=== PATIENT | female | born 1950 | race Caucasian/White ===

== ENCOUNTER → 2024-01-25 10:58 | Outpatient (REF) | payer MEDICARE, OTHER, SELFPAY | LOC: HWRAD 10:58 | PROVIDERS: ATTENDING PHYSICIAN Internal Medicine Hematology & Oncology; FAMILY PHYSICIAN Internal Medicine | DX: N28.1 Cyst of kidney, acquired (principal) | CPT/HCPCS: 76775 ==

== ENCOUNTER → 2024-02-04 13:18 | Outpatient (REF) | payer MEDICARE, OTHER, SELFPAY | LOC: HWRAD 13:18 | PROVIDERS: ATTENDING PHYSICIAN Nurse Practitioner Family | DX: M89.319 Hypertrophy of bone, unspecified shoulder (principal) | CPT/HCPCS: 73000 ==

== ENCOUNTER 2024-06-15 19:42 | Emergency (ER) | payer MEDICARE, OTHER, SELFPAY ==
[2024-06-15 19:49] VITALS: BP 167/89
[2024-06-15 20:15] VITALS: BP 141/82
--- NOTE | 2024-06-15 20:19 | ED.GENMED ---
History of Present Illness
<Abby Cameron PA-C - Last Filed: 06/16/24 00:23>
General
Chief Complaint: Chest Pain
Source: patient
Exam Limitations: none
Time Seen by Provider: 06/15/24 20:06
Nursing documentation reviewed up to this point in time: agreed with
History of Present Illness
History of Present Illness:
Patient is a 74-year-old female with history hypertension, hyperlipidemia presenting to the emergency department due to acute onset chest discomfort around 7:15 PM. Patient states she had recently finished eating dinner approximately 30 minutes
prior when she was sitting down at the table and had acute onset mid chest discomfort. Patient describes it as a pressure type pain in her mid chest extending up her anterior chest into her neck. No radiation into her back. Patient states at
first she thought it may be related to acid reflux although symptoms were much more severe than she is ever experienced in the past and came to the emergency department for further evaluation. She did have some mild nausea but no vomiting. Patient
denies any associated shortness of breath, dizziness, lightheadedness, tearing back pain, numbness/tingling.
Patient states since arriving to the emergency department symptoms have decreased slightly now states they are to 5 out of 10 in severity.
Patient denies any personal history of cardiovascular disease. She does follow with Dr. Madison for known PFO and has history had a stress test in the past with no abnormal findings.
Past History
<Abby Cameron PA-C - Last Filed: 06/16/24 00:23>
Past History
ED Past Medical History: HTN and Other (Patent foramen ovale)
ED Past Surgical History: Orthopedic
Social History
Tobacco: Non-smoker
Alcohol: None
Drug: None
Personal:
Living: with family
Review of Systems
<Abby Cameron PA-C - Last Filed: 06/16/24 00:23>
Review of Systems
Allergies reviewed?: Yes
All Other Systems: ROS reviewed and negative except as documented in HPI and ROS
Phy Exam
<Abby Cameron PA-C - Last Filed: 06/16/24 00:23>
Physical Exam
Physical Exam:
Vitals: Mildly hypertensive, otherwise vital signs stable. Afebrile
General: Patient is well appearing, no acute distress. Nontoxic-appearing
Skin: Warm and dry, no rashes or lesions
Head: Normocephalic, atraumatic
Eyes: Sclera nonicteric. EOMs intact. No nystagmus.
Throat: Protecting airway
Neck: Normal ROM, no cervical spine tenderness, no meningismus. No JVD
Cardiac: Regular rate and rhythm, no murmurs. Anterior chest wall nontender to palpation
Pulm: Normal respiratory effort, no wheezes, rales, rhonchi heard on exam.
Abdomen: Abdomen soft. No abdominal tenderness.
Extremities: No evidence of cyanosis or edema. Great distal pulses
Neuro: AAOx3. CN II-XII intact. No focal neurologic deficits.
Psychiatric: Normal affect.
Scores
<Abby Cameron PA-C - Last Filed: 06/16/24 00:23>
Heart Score for Chest Pain Patients
STEMI patient?: No
History: Moderately Suspicious
ECG: Nonspecific Repolarization
Age: >/= 65 years
Risk Factors: 1 or 2 Risk Factors
Troponin: </= Normal Limit
Heart Score for Chest Pain Patients: 5
Heart Score Risk: 20.3% MACE over next 6 weeks
Course
<Abby Cameron PA-C - Last Filed: 06/16/24 00:23>
Orders/Labs/Results
Orders:
Orders
06/15/24 19:43
EKG [Electrocardiogram (*1)] Urgent
Reason for Study: Chest Pain
EKG- Treatment ONCE
06/15/24 20:22
CR Chest - 2 Views Urgent
Comment:
Reason For Exam: chest pain
06/15/24 20:35
Pantoprazole [Protonix IV] 40 mg IV NOW STA
06/15/24 20:36
Pantoprazole [Protonix IV] 40 mg .ROUTE .STK-MED ONE
06/15/24 20:41
Complete Blood Count/With Diff Urgent
Comprehensive Metabolic Panel Urgent
Troponin I Urgent
06/15/24 23:00
Electrocardiogram (*1) Urgent
Reason for Study: Chest Pain
EKG- Treatment ONCE
06/15/24 23:11
Troponin I Urgent
Abnormal Lab Results
06/15/24
20:41
Eosinophils % 7.0 H %
(0-6)
Glucose 125 H mg/dl
(70-99)
Total Protein 5.9 L g/dl
(6.3-8.2)
06/15/24 20:41
06/15/24 20:41
Vital Signs
Initial and Last Documented VS:
Initial Vital Signs
Temp Pulse Resp BP
98.3 F 75 20 167/89
06/15/24 19:49 06/15/24 19:49 06/15/24 19:49 06/15/24 19:49
Last Documented Vital Signs
Temp Pulse Resp BP Pulse Ox
98.3 F 71 17 133/70 99
06/15/24 19:49 06/16/24 00:00 06/16/24 00:00 06/16/24 00:05 06/16/24 00:05
<Harlan Bey, DO - Last Filed: 06/15/24 21:47>
Orders/Labs/Results
Orders:
Orders
06/15/24 19:43
EKG [Electrocardiogram (*1)] Urgent
Reason for Study: Chest Pain
EKG- Treatment ONCE
06/15/24 20:22
CR Chest - 2 Views Urgent
Comment:
Reason For Exam: chest pain
06/15/24 20:35
Pantoprazole [Protonix IV] 40 mg IV NOW STA
06/15/24 20:36
Pantoprazole [Protonix IV] 40 mg .ROUTE .STK-MED ONE
06/15/24 20:41
Complete Blood Count/With Diff Urgent
Comprehensive Metabolic Panel Urgent
Troponin I Urgent
06/15/24 23:00
Electrocardiogram (*1) Urgent
Reason for Study: Chest Pain
EKG- Treatment ONCE
06/15/24 23:11
Troponin I Urgent
Abnormal Lab Results
06/15/24
20:41
Eosinophils % 7.0 H %
(0-6)
Glucose 125 H mg/dl
(70-99)
Total Protein 5.9 L g/dl
(6.3-8.2)
06/15/24 20:41
06/15/24 20:41
Vital Signs
Initial and Last Documented VS:
Initial Vital Signs
Temp Pulse Resp BP
98.3 F 75 20 167/89
06/15/24 19:49 06/15/24 19:49 06/15/24 19:49 06/15/24 19:49
Last Documented Vital Signs
Temp Pulse Resp BP Pulse Ox
98.3 F 71 17 133/70 99
06/15/24 19:49 06/16/24 00:00 06/16/24 00:00 06/16/24 00:05 06/16/24 00:05
<Abby Cmaeron PA-C - Last Filed: 06/16/24 00:23>
MDM/Problems Addressed
Differential Diagnosis Includes:
Not limited to: GERD, muscle strain, pericarditis, myocarditis, ACS
MDM/Problems Addressed:
74-year-old female with history as documented presenting for evaluation of acute onset chest discomfort approximately 30 minutes following dinner tonight. No true exertional or pleuritic component. Patient was sitting down at time of onset.
Symptoms have dissipated somewhat by arrival to emergency department. No associated shortness of breath, dizziness, lightheadedness, diaphoresis. No personal history of cardiovascular disease. Patient somewhat hypertensive on arrival with
normalization of blood pressure by my examination. Physical exam as above. Patient is very well-appearing, in no apparent distress. Heart regular rate and rhythm. Lungs clear bilaterally. Anterior chest wall nontender to palpation. Abdomen is
soft and nontender. No focal neurologic deficits noted. An EKG obtained in triage shows no acute ischemic changes. Labs were initiated which show no acute abnormalities. Initial troponin is normal. Given recent onset of symptoms�will repeat
troponin at 11 PM which would be approximately 4 hours from onset of symptoms. A chest x-ray was also performed which shows no acute abnormality of the chest. Did give patient 40 mg IV Protonix which patient states did improve her symptoms. Will
plan for repeat troponin at 11 PM, monitor patient closely. Will reassess.
Into reassess patient at bedside. Patient definitely feeling better following Protonix. She looks well, is in no apparent distress. Repeat troponin is pending.
A repeat EKG was obtained which shows no acute ischemic changes. Repeat troponin was also normal. Given it has been 4 hours since onset of symptoms�feel this is sufficient to rule out acute CT patient is feeling better. Given 2 negative
troponins, nonischemic EKGs, and improvement following after an acid�doubt ACS/acute cardiac syndrome at this time. Although given patient's risk factors�do feel she should be closely monitored with cardiology for possible stress testing
outpatient. No indication for admission at this time. Patient will also follow-up with GI doctor given possibility of acid reflux component. Return precautions discussed at length. Patient will be plugged in with chest pain hotline and will
follow-up with her financial assistance advisor this week. Stable for discharge. Patient seen with attending physician.
Chronic conditions affecting care:
Hypertension, hyperlipidemia, GERD
Acute Exacerbation and/or Progression of Chronic Illness:
Acutely hypertensive
<Abby Cameron PA-C - Last Filed: 06/16/24 00:23>
*Radiology
Radiology exam reviewed: preliminary read by ED provider (No acute cardiopulmonary process) and radiology read reviewed
*Pulse Oximetry
Patient hypoxic: no
*EKG
Interpreted by ED Provider?: Yes
EKG Intrepretation Date: 06/15/24
Interpretation: normal
Comparison EKG: no changes
Heart Rate: 80
Rate: normal
Rhythm: sinus
[place]: normal axis
Interval: normal interval
QRS Pattern: right bundle branch block
Ischemia: no ischemia
*Machine Repairer Maintenance Interpretation
Rate: normal
Interpretation: normal
Heart Rate: 74
Rhythm: sinus
*Critical Care Note
Total Time (30-74mins, 75-104mins- exclusive of procedures): Not Applicable
ED Attending Note
<Abby Cameron PA-C - Last Filed: 06/16/24 00:23>
-
Portions of this chart may have been created with voice recognition software.� Occasional wrong word or��sound alike� substitutions may have occurred due to the inherent limitations of voice recognition software.
<Harlan Bey DO - Last Filed: 06/15/24 21:47>
ED Attending Note
Patient seen and examined by attending physician: Yes
I performed the substantive portion of visit, reviewed & personally made and approve the management plan that is documented in note by myself or EWELINA.: Yes
ED Attending Note:
With PA agree with assessment and plan dyspepsia worse than her prior reflux no history of CAD, EKG noted feeling better after an acids, first troponin noted, will repeat if negative will discharge home to follow-up with cardiology
Discharge Plan
Departure
Patient Disposition: Home (Routine Discharge)
Date of Disposition: 06/15/24
Time of Disposition: 23:55
Patient with high blood pressure during this ER visit?: Yes
Condition: Good
Covid-19: Not Applicable
Discharge Problem:
Chest pain
Instructions: Acid reflux and GERD in adults, Chest Pain CBC Follow Up, Chest Pain
Prescriptions:
No Action
sumatriptan succinate 50 MG tablet
50 mg PO DAILYPRN PRN (Reason: migraines)
lisinopril 5 MG tablet
5 mg PO DAILY
ascorbic acid (vitamin C) [Vitamin C] 500 MG tablet
500 mg PO TUSA
rosuvastatin 10 MG tablet
10 mg PO HS
cholecalciferol (vitamin D3) 1,000 UNITS tablet
1,000 units PO DAILY
One Daily Women 50 Plus 1 EACH tablet
1 ea PO QPM
calcium-vitamin D3-vitamin K [Citracal-D3 Soft Chew] 1 EACH tablet,chewable
1 ea PO MO
fexofenadine 60 mg Tablet
60 mg PO DAILYPRN PRN (Reason: allergies)
naproxen sodium [Aleve] 220 mg Tablet
220 mg PO Q12H
aspirin 81 MG tablet,chewable
81 mg PO QPM
loperamide [Imodium] 2 mg Capsule
2 mg PO DAILYPRN PRN (Reason: diarrhea)
polyethylene glycol 3350 [Miralax] 17 gram Powder In Packet
17 g PO QPM
meclizine 25 mg Tablet
25 mg PO DAILYPRN PRN (Reason: vertigo)
triamcinolone acetonide [Nasacort] 55 mcg Aerosol,[place]
1 spray INTRANASAL DAILY
Rx Instructions:
administer into each nostril
calcium carbonate [Tums] 200 mg calcium (500 mg) Tablet,Chewable
200 mg PO DAILYPRN PRN (Reason: sour stomach)
verapamil 100 mg Capsule, [address]
100 mg PO HS
dicyclomine 10 mg Capsule
10 mg PO DAILYPRN PRN (Reason: intestinal spasm)
Systane (PF) 0.4-0.3 % [place]
1 drp BOTH EYES TID
Biotene Dry Mouth Oral Rinse Mouthwash
15 ml MUCOUS MEMBRANE DAILYPRN PRN (Reason: dry mouth)
ciprofloxacin HCl [Cipro] 500 mg tablet
500 mg PO BID Qty: 14 0RF
metronidazole 500 mg tablet
500 mg PO TID Qty: 21 0RF
Referrals:
Donnie Madison MD [Active] - Next open appointment
Radu Marinelli DO [Family Provider] -
Activity Restrictions/Additional Instructions:
RETURN TO THE EMERGENCY DEPARTMENT WITH ANY RECURRENT CHEST PAIN, CHEST PAIN WORSE WITH EXERTION OR ASSOCIATED WITH SHORTNESS OF BREATH, DIZZINESS/LIGHTHEADEDNESS, NAUSEA, ANY WORSENING IN CURRENT SYMPTOMS, OR ANY OTHER CONCERNS
-Stay well-hydrated.
-As discussed�it is very important that you are seen by your financial assistance advisor for further evaluation/management. They may want to do further testing including stress test. Take it easy until you are cleared by cardiology.
Monitor your symptoms closely and return to the emergency department with acute worsening/new symptoms.
Interventions
Interventions:
*Risk Screen - Suicide Last Done: 06/15/24 19:49
*General Assessment Last Done: 06/15/24 19:49
*Neglect/Abuse Screening Last Done: 06/15/24 19:49
ED- Fall Risk Assessment Last Done: 06/15/24 20:49
*Nursing Disposition Last Done: 06/16/24 00:05
ED- Cardiac Assessment Last Done: 06/15/24 20:49
Discharge Date and Time
Discharge Date/Time: 06/16/24 00:09
Print Language: SAMI
[2024-06-15] MEDS: PROTONIX IV 40 MG IV (20:40)
[2024-06-15 20:42] VITALS: BMI 29.8
[2024-06-15 20:47] LABS: % Immature Granulocytes 0.2 % (0-0.5); % Lymphocytes 34.2 % (20.5-51.1); % Monocytes 7.5 % (1.7-9.3); % Neutrophils 50.1 % (42.2-75.2); Absolute Basophils 0.1 10^3/uL (0-0.2); Absolute Eosinophils 0.6 10^3/uL (0-0.7); Absolute Lymphocytes 2.8 10^3/uL (1.2-3.4); Absolute Monocytes 0.6 10^3/uL (0.1-0.6); Absolute Neutrophils 4.2 10^3/uL (1.4-6.5); Hematocrit 37.3 % (37.0-47.0); Mean Corp Hgb Conc. 34.9 g/dL (33.0-37.0); Mean Corpuscular Hgb 29.5 pg (27.0-31.0); Mean Corpuscular Volume 84.6 fL (81.0-99.0); Mean Platelet Volume 9.6 fL (7.4-10.4); Nucleated Red Blood Cells % 0 %; Platelet Count 302 10^3/uL (130-400); Red Blood Cell Count 4.41 10^6/uL (4.20-5.40); Red Cell Dist. Width 13.2 % (11.5-14.5); White Blood Cell Count 8.3 10^3/uL (4.8-10.8)
[2024-06-15 21:16] LABS: ALT (SGPT) 15 U/L (0-35); AST (SGOT) 30 U/L (14-36); Albumin 3.9 g/dl (3.5-5.0); Alkaline Phosphatase 80 U/L (38-126); Blood Urea Nitrogen 13 mg/dl (7-17); Calcium 9.8 mg/dl (8.4-10.2); Carbon Dioxide 27 mmol/L (22-30); Chloride 103 mmol/L (98-107); Estimated Creatinine Clearance 47 ml/min; Glucose 125 mg/dl (70-99); Potassium 3.8 mmol/L (3.5-5.1); Sodium 135 mmol/L (135-145); Total Bilirubin 0.5 mg/dl (0.2-1.3); Total Protein 5.9 g/dl (6.3-8.2); eGFR > 60.00
[2024-06-15 21:21] LABS: Troponin I < 0.012 ng/ml
[2024-06-15 22:00] VITALS: BP 146/82
[2024-06-15 23:00] VITALS: BP 146/80
[2024-06-15 23:46] LABS: Troponin I < 0.012 ng/ml
[2024-06-16 00:05] VITALS: BP 133/70
== END 2024-06-16 00:09 | disposition home or self-care (01) ==
LOC: EMR 19:42
PROVIDERS: Physician Assistant; EMERGENCY PHYSICIAN Emergency Medicine; FAMILY PHYSICIAN Internal Medicine
DX: R07.89 Other chest pain (principal); I10 Essential (primary) hypertension; E78.5 Hyperlipidemia, unspecified
CPT/HCPCS: 99285; 96374; 71046; 80053; 84484; 85025; 93005

== ENCOUNTER 2024-08-12 16:50 | Emergency (ER) | payer MEDICARE, OTHER, SELFPAY ==
[2024-08-12 17:01] VITALS: BP 167/92
[2024-08-12 19:56] LABS: Blood Urea Nitrogen 12 mg/dl (7-17); Calcium 9.8 mg/dl (8.4-10.2); Carbon Dioxide 27 mmol/L (22-30); Chloride 98 mmol/L (98-107); Glucose 121 mg/dl (70-99); Potassium 4.7 mmol/L (3.5-5.1); Sodium 139 mmol/L (135-145); eGFR > 60.00
[2024-08-12] MEDS: ELIQUIS 10 MG PO (20:11)
--- NOTE | 2024-08-12 20:20 | ED.GENMED ---
History of Present Illness
General
Chief Complaint: DVT/Possible Blood Clot
Source: patient
Exam Limitations: none
Time Seen by Provider: 08/12/24 18:57
Nursing documentation reviewed up to this point in time: agreed with
History of Present Illness
History of Present Illness:
Patient to ED with comlaint of pain and swelling to LLE. States symptoms started last week. She was seen by her parent coach and placed on a prednisone taper, patient states to decrease inflarmmation, treat possible plantar fasciitis. Patient
states her foot pain has improved but her calf pain continues. She was sent for outpatient US today which revealed DVT in the peroneal vein. Advised to come to ED for eval. She denies any CP/pressure,SOB. No prior history of same.
Past History
Past History
ED Past Medical History: HTN and Other (Patent foramen ovale)
ED Past Surgical History: Orthopedic
Social History
Tobacco: Non-smoker
Alcohol: None
Drug: None
Personal:
Living: with family
Review of Systems
Review of Systems
Allergies reviewed?: Yes
Constitutional: Reports no symptoms
EENT: Reports no symptoms
Respiratory: Reports no symptoms
Cardiac: Reports no symptoms
ABD/GI: Reports no symptoms
Musculoskeletal: Reports joint pain (pain to left calf)
Skin: Reports no symptoms
Neurological: Reports no symptoms
Psychiatric: Reports no symptoms
Phy Exam
General Physical Exam
General Presentation: well appearing and no apparent distress
General age: appears stated age
General Skin: warm and dry
General Habitus: normal
General Mental: alert
Cardiovascular Exam
Cardiovascular Exam: regular rate/rhythm and no edema
Pulmonary Exam
Pulmonary Exam: lungs clear and no respiratory distress
Musculoskeletal Exam
Musculoskeletal Exam: neuro vasc intact and other (left calf pain)
Skin Exam
Skin Exam: normal color, warm/dry and no rash
Psychiatric Exam
Psychiatric Exam: normal mood/affect
Course
Orders/Labs/Results
Orders:
Orders
08/12/24 19:15
Basic Metabolic Panel Urgent
08/12/24 20:03
Apixaban [Eliquis] 10 mg PO NOW STA
Abnormal Lab Results
08/12/24
19:15
Creatinine 0.5 L mg/dL
(0.6-1.0)
Glucose 121 H mg/dl
(70-99)
08/12/24 19:15
Vital Signs
Initial and Last Documented VS:
Initial Vital Signs
Temp Pulse Resp BP Pulse Ox
98.2 F 75 20 167/92 95
08/12/24 17:01 08/12/24 17:01 08/12/24 17:01 08/12/24 17:01 08/12/24 17:01
Last Documented Vital Signs
Temp Pulse Resp BP Pulse Ox
98.2 F 75 20 167/92 95
08/12/24 17:01 08/12/24 17:01 08/12/24 17:01 08/12/24 17:01 08/12/24 17:01
*Radiology
Radiology exam reviewed: radiology read reviewed
*Pulse Oximetry
Patient hypoxic: yes
*Critical Care Note
Total Time (30-74mins, 75-104mins- exclusive of procedures): Not Applicable
Update Note
Update Note:
Patient to ED for eval of left calf pain. US report of DVT peroneal vein. No identifiable risk factors. [place] started in department. She is discharged home and will follow up with PCP in AM Given instructions on s/s to return to ED and she is
agreeable to plan.
ED Attending Note
-
Portions of this chart may have been created with voice recognition software.� Occasional wrong word or��sound alike� substitutions may have occurred due to the inherent limitations of voice recognition software.
Discharge Plan
Departure
Patient Disposition: Home (Routine Discharge)
Date of Disposition: 08/12/24
Time of Disposition: 20:05
Patient with high blood pressure during this ER visit?: No
Condition: Good
Covid-19: Not Applicable
Discharge Problem:
DVT (deep venous thrombosis)
Instructions: Deep Vein Thrombosis (Blood Clots in the Legs) (DC), Apixaban
Prescriptions:
New
Eliquis DVT-PE Treat 30D Start 5 mg (74 tabs) tablets,dose pack
See Rx Instructions .ROUTE .COMPLEX Qty: 74 0RF
Rx Instructions:
orally per package directions
No Action
sumatriptan succinate 50 MG tablet
50 mg PO DAILYPRN PRN (Reason: migraines)
lisinopril 5 MG tablet
5 mg PO DAILY
ascorbic acid (vitamin C) [Vitamin C] 500 MG tablet
500 mg PO TUSA
rosuvastatin 10 MG tablet
10 mg PO HS
cholecalciferol (vitamin D3) 1,000 UNITS tablet
1,000 units PO DAILY
One Daily Women 50 Plus 1 EACH tablet
1 ea PO QPM
calcium-vitamin D3-vitamin K [Citracal-D3 Soft Chew] 1 EACH tablet,chewable
1 ea PO MO
fexofenadine 60 mg Tablet
60 mg PO DAILYPRN PRN (Reason: allergies)
naproxen sodium [Aleve] 220 mg Tablet
220 mg PO Q12H
aspirin 81 MG tablet,chewable
81 mg PO QPM
loperamide [Imodium] 2 mg Capsule
2 mg PO DAILYPRN PRN (Reason: diarrhea)
polyethylene glycol 3350 [Miralax] 17 gram Powder In Packet
17 g PO QPM
meclizine 25 mg Tablet
25 mg PO DAILYPRN PRN (Reason: vertigo)
triamcinolone acetonide [Nasacort] 55 mcg Aerosol,[place]
1 spray INTRANASAL DAILY
Rx Instructions:
administer into each nostril
calcium carbonate [Tums] 200 mg calcium (500 mg) Tablet,Chewable
200 mg PO DAILYPRN PRN (Reason: sour stomach)
verapamil 100 mg Capsule, [address]
100 mg PO HS
dicyclomine 10 mg Capsule
10 mg PO DAILYPRN PRN (Reason: intestinal spasm)
Systane (PF) 0.4-0.3 % Droppe[place]
1 drp BOTH EYES TID
Biotene Dry Mouth Oral Rinse Mouthwash
15 ml MUCOUS MEMBRANE DAILYPRN PRN (Reason: dry mouth)
ciprofloxacin HCl [Cipro] 500 mg tablet
500 mg PO BID Qty: 14 0RF
metronidazole 500 mg tablet
500 mg PO TID Qty: 21 0RF
Referrals:
Radu Marinelli DO [Family Provider] - Tomorrow
Interventions
Interventions:
*Risk Screen - Suicide Last Done: 08/12/24 17:01
*General Assessment Last Done: 08/12/24 17:01
*Neglect/Abuse Screening Last Done: 08/12/24 20:17
ED- Fall Risk Assessment Last Done: 08/12/24 20:17
*ED COVID-19 Vaccine History Last Done: 08/12/24 20:17
*Nursing Disposition Last Done: 08/12/24 20:17
ED- Cardiac Assessment Last Done: 08/12/24 19:52
ED- Pulmonary Assessment Last Done: 08/12/24 19:52
ED-Peripheral Vascular Assessment Last Done: 08/12/24 19:52
ED-Skin Assessment Last Done: 08/12/24 19:52
Discharge Date and Time
Discharge Date/Time: 08/12/24 20:18
Print Language: LITHUANIAN
== END 2024-08-12 20:18 | disposition home or self-care (01) ==
LOC: EMR 16:50
PROVIDERS: Nurse Practitioner; EMERGENCY PHYSICIAN Emergency Medicine; FAMILY PHYSICIAN Internal Medicine
DX: I82.452 Acute embolism and thrombosis of left peroneal vein (principal); I10 Essential (primary) hypertension
CPT/HCPCS: 99284; 80048; 93971

== ENCOUNTER 2024-09-15 15:59 | Emergency (ER) | payer MEDICARE, OTHER, SELFPAY ==
[2024-09-15 16:00] VITALS: BP 196/101
[2024-09-15 16:37] LABS: % Basophils 1.1 % (0-2); % Eosinophils 4.7 % (0-6); % Immature Granulocytes 0.4 % (0-0.5); % Lymphocytes 16.9 % (20.5-51.1); % Monocytes 6.7 % (1.7-9.3); % Neutrophils 70.2 % (42.2-75.2); Absolute Basophils 0.1 10^3/uL (0-0.2); Absolute Eosinophils 0.5 10^3/uL (0-0.7); Absolute Lymphocytes 1.7 10^3/uL (1.2-3.4); Absolute Monocytes 0.7 10^3/uL (0.1-0.6); Absolute Neutrophils 7.2 10^3/uL (1.4-6.5); Hematocrit 38.2 % (37.0-47.0); Hemoglobin 12.7 g/dL (12.0-16.0); Mean Corp Hgb Conc. 33.2 g/dL (33.0-37.0); Mean Corpuscular Hgb 28.7 pg (27.0-31.0); Mean Corpuscular Volume 86.2 fL (81.0-99.0); Mean Platelet Volume 11.1 fL (7.4-10.4); Nucleated Red Blood Cells % 0 %; Platelet Count 112 10^3/uL (130-400); Red Blood Cell Count 4.43 10^6/uL (4.20-5.40); Red Cell Dist. Width 13.2 % (11.5-14.5); White Blood Cell Count 10.2 10^3/uL (4.8-10.8)
[2024-09-15 16:38] LABS: ALT (SGPT) 59 U/L (0-35); AST (SGOT) 111 U/L (14-36); Albumin 4.3 g/dl (3.5-5.0); Alkaline Phosphatase 689 U/L (38-126); Blood Urea Nitrogen 5 mg/dl (7-17); Calcium 9.6 mg/dl (8.4-10.2); Carbon Dioxide 29 mmol/L (22-30); Chloride 101 mmol/L (98-107); Glucose 145 mg/dl (70-99); Potassium 4.1 mmol/L (3.5-5.1); Sodium 137 mmol/L (135-145); Total Bilirubin 0.7 mg/dl (0.2-1.3); Total Protein 6.8 g/dl (6.3-8.2); eGFR > 60.00
--- NOTE | 2024-09-15 17:05 | ED.GENMED ---
History of Present Illness
General
Chief Complaint: Headache
Time Seen by Provider: 09/15/24 16:43
History of Present Illness
History of Present Illness:
Patient is a 74-year-old woman with recently diagnosed DVT on Eliquis, migraines presented to the emergency department with migraine. Patient states that when she was on Imitrex for her migraines however when she started the Eliquis she had to stop
taking the Imitrex. She did go to her neurologist who started her on a different medication for treatment however there is a delay secondary to insurance. She states that she developed this migraine at 2 AM. It is like her usual migraines. It is
on the right side of her head with associated nausea vomiting photophobia and phonophobia. No fevers or chills. No neck stiffness. No numbness tingling. No weakness. She did have a headache a few days ago that she tried Tylenol 3 cups of
caffeine and it did work however given that she has had a second migraine within the past week she came in here for further evaluation.
Past History
Past History
ED Past Medical History: HTN and Other (Patent foramen ovale)
ED Past Surgical History: Orthopedic
Social History
Tobacco: Non-smoker
Alcohol: None
Drug: None
Personal:
Living: with family
Phy Exam
Physical Exam
Physical Exam:
GENERAL: in no acute distress
HEENT: normocephalic, extraocular movements intact, moist oral mucosa
NECK: normal inspection
RESPIRATORY: no respiratory distress, clear to auscultation bilaterally
CARDIOVASCULAR: regular rate and rhythm
ABDOMEN/: soft, non-distended, non-tender to palpation, no rebound or guarding
EXTREMITIES: non-tender, no edema/swelling
NEUROLOGIC: alert and oriented x 3, cranial nerves II-XII intact, right upper extremity strength 5/5, left upper extremity strength 5/5, right lower extremity strength 5/5, left lower extremity strength 5/5, normal sensation to light touch, normal
agnjip-[id number] and niph-dx-iile, gait not tested formally
SKIN: warm
Course
Orders/Labs/Results
Orders:
Orders
09/15/24 16:10
Complete Blood Count/With Diff Urgent
Comprehensive Metabolic Panel Urgent
09/15/24 17:03
Acetaminophen [Tylenol] 1,000 mg PO NOW STA
Diphenhydramine [Benadryl] 25 mg IV NOW STA
Metoclopramide [Reglan] 10 mg IV NOW STA
Abnormal Lab Results
09/15/24
16:10
Plt Count 112 L 10^3/uL
(130-400)
MPV 11.1 H fL
(7.4-10.4)
Absolute Neuts (auto) 7.2 H 10^3/uL
(1.4-6.5)
Absolute Monos (auto) 0.7 H 10^3/uL
(0.1-0.6)
Lymphocytes % 16.9 L %
(20.5-51.1)
BUN 5 L mg/dl
(7-17)
Creatinine 0.5 L mg/dL
(0.6-1.0)
Glucose 145 H mg/dl
(70-99)
AST 111 H U/L
(14-36)
ALT 59 H U/L
(0-35)
Alkaline Phosphatase 689 H U/L
(38-126)
09/15/24 16:10
09/15/24 16:10
Vital Signs
Initial and Last Documented VS:
Initial Vital Signs
Temp Pulse Resp BP Pulse Ox
98.0 F 78 18 196/101 98
09/15/24 16:00 09/15/24 16:00 09/15/24 16:00 09/15/24 16:00 09/15/24 16:00
Last Documented Vital Signs
Temp Pulse Resp BP Pulse Ox
98.0 F 70 18 178/84 97
09/15/24 16:00 09/15/24 18:10 09/15/24 18:10 09/15/24 18:10 09/15/24 18:10
MDM/Problems Addressed
Differential Diagnosis Includes:
Patient is a 74-year-old woman with history of migraines recently who had to discontinue her Imitrex presenting to the emergency department with a migraine that is consistent with her prior migraines. Vitals are unremarkable and exam does not show
any neuro deficits. Likely migraine. No headache red flags. History and exam without any managements or focal neurofindings to suggest acute hemorrhage or meningitis or abscess. Will give migraine cocktail and reassess.
*Critical Care Note
Total Time (30-74mins, 75-104mins- exclusive of procedures): Not Applicable
Update Note
Update Note:
On reevaluations patient's headache has improved. Will discharge at this time. Strict return precautions given.
ED Attending Note
-
Portions of this chart may have been created with voice recognition software.� Occasional wrong word or��sound alike� substitutions may have occurred due to the inherent limitations of voice recognition software.
Discharge Plan
Departure
Patient Disposition: Home (Routine Discharge)
Date of Disposition: 09/15/24
Time of Disposition: 18:57
Patient with high blood pressure during this ER visit?: Yes
Discharge Problem:
Headache
Instructions: Migraines (DC)
Prescriptions:
No Action
sumatriptan succinate 50 MG tablet
50 mg PO DAILYPRN PRN (Reason: migraines)
lisinopril 5 MG tablet
5 mg PO DAILY
ascorbic acid (vitamin C) [Vitamin C] 500 MG tablet
500 mg PO TUSA
rosuvastatin 10 MG tablet
10 mg PO HS
cholecalciferol (vitamin D3) 1,000 UNITS tablet
1,000 units PO DAILY
One Daily Women 50 Plus 1 EACH tablet
1 ea PO QPM
calcium-vitamin D3-vitamin K [Citracal-D3 Soft Chew] 1 EACH tablet,chewable
1 ea PO MO
fexofenadine 60 mg Tablet
60 mg PO DAILYPRN PRN (Reason: allergies)
naproxen sodium [Aleve] 220 mg Tablet
220 mg PO Q12H
aspirin 81 MG tablet,chewable
81 mg PO QPM
loperamide [Imodium] 2 mg Capsule
2 mg PO DAILYPRN PRN (Reason: diarrhea)
polyethylene glycol 3350 [Miralax] 17 gram Powder In Packet
17 g PO QPM
meclizine 25 mg Tablet
25 mg PO DAILYPRN PRN (Reason: vertigo)
triamcinolone acetonide [Nasacort] 55 mcg Aerosol,[place]
1 spray INTRANASAL DAILY
Rx Instructions:
administer into each nostril
calcium carbonate [Tums] 200 mg calcium (500 mg) Tablet,Chewable
200 mg PO DAILYPRN PRN (Reason: sour stomach)
verapamil 100 mg Capsule, [address]
100 mg PO HS
dicyclomine 10 mg Capsule
10 mg PO DAILYPRN PRN (Reason: intestinal spasm)
Systane (PF) 0.4-0.3 % Dropperette
1 drp BOTH EYES TID
Biotene Dry Mouth Oral Rinse Mouthwash
15 ml MUCOUS MEMBRANE DAILYPRN PRN (Reason: dry mouth)
ciprofloxacin HCl [Cipro] 500 mg tablet
500 mg PO BID Qty: 14 0RF
metronidazole 500 mg tablet
500 mg PO TID Qty: 21 0RF
Eliquis DVT-PE Treat 30D Start 5 mg (74 tabs) tablets,dose pack
See Rx Instructions .ROUTE .COMPLEX Qty: 74 0RF
Rx Instructions:
orally per package directions
Referrals:
Radu Marinelli DO [Family Provider] -
Activity Restrictions/Additional Instructions:
You were seen in the Emergency Department today for headache. While you were here we performed blood work, which was reassuring.
We would like for you to follow up with your primary care physician for further evaluation. If you experience fever, worsening of your symptoms, or develop any other new or concerning symptoms, please return to the Emergency Department immediately.
Please see the attached sheet for additional information.
Interventions
Interventions:
*Risk Screen - Suicide Last Done: 09/15/24 16:00
*General Assessment Last Done: 09/15/24 16:00
*Neglect/Abuse Screening Last Done: 09/15/24 16:00
ED- Fall Risk Assessment Last Done: 09/15/24 16:42
*ED COVID-19 Vaccine History Last Done: 09/15/24 16:00
Discharge Date and Time
Print Language: MACEDONIAN
[2024-09-15] MEDS: TYLENOL 1000 MG PO (17:26)
[2024-09-15] MEDS: REGLAN 10 MG IV (17:27)
[2024-09-15] MEDS: BENADRYL 25 MG IV (17:27)
[2024-09-15 18:10] VITALS: BP 178/84
== END 2024-09-15 20:05 | disposition home or self-care (01) ==
LOC: EMR 15:59
PROVIDERS: Emergency Medicine; EMERGENCY PHYSICIAN Student in an Organized Health Care Education/Training Program; FAMILY PHYSICIAN Internal Medicine
DX: R51.9 Headache, unspecified (principal); I10 Essential (primary) hypertension
CPT/HCPCS: 99284; 96374; 96375; 80053; 85025

== ENCOUNTER 2024-09-20 06:41 | Inpatient (IN) | payer MEDICARE, OTHER, SELFPAY ==
[2024-09-20] VITALS (16 sets, daily range): BP systolic 135–179; BP diastolic 74–125; BMI 29.1; BMI 27.3
[2024-09-20 01:31] LABS: % Basophils 0.9 % (0-2); % Eosinophils 3.6 % (0-6); % Immature Granulocytes 0.4 % (0-0.5); % Lymphocytes 10.5 % (20.5-51.1); % Monocytes 7.4 % (1.7-9.3); % Neutrophils 77.2 % (42.2-75.2); Absolute Basophils 0.1 10^3/uL (0-0.2); Absolute Eosinophils 0.5 10^3/uL (0-0.7); Absolute Immature Granulocytes 0.1 10^3/uL (0-0.05); Absolute Lymphocytes 1.4 10^3/uL (1.2-3.4); Hematocrit 38.2 % (37.0-47.0); Hemoglobin 13.1 g/dL (12.0-16.0); Mean Corp Hgb Conc. 34.3 g/dL (33.0-37.0); Mean Corpuscular Hgb 28.7 pg (27.0-31.0); Mean Corpuscular Volume 83.8 fL (81.0-99.0); Mean Platelet Volume 12.8 fL (7.4-10.4); Nucleated Red Blood Cells % 0 %; Platelet Count 143 10^3/uL (130-400); Red Blood Cell Count 4.56 10^6/uL (4.20-5.40); Red Cell Dist. Width 13.1 % (11.5-14.5); White Blood Cell Count 12.9 10^3/uL (4.8-10.8)
--- NOTE | 2024-09-20 01:45 | ED.GENMED ---
History of Present Illness
<HERNÁN Wade - Last Filed: 09/20/24 02:27>
General
Chief Complaint: Blood Pressure Problem
Source: patient
Exam Limitations: none
Time Seen by Provider: 09/20/24 01:16
Nursing documentation reviewed up to this point in time: agreed with
History of Present Illness
History of Present Illness:
Patient is a 74yo F w/ recent DVT who presents for BP issue. She was on Eliquis until today. Due to going on Eliquis, she had to change her migraine medications including stopping verapamil about 1 mo ago. She was at vascular doctor today when BP
measured 161/80 which made pt anxious. Reports chest, L shoulder, and L neck pain started around 10pm. Describes pain as sharp that turned into ache. Took BP at this time, it was high but does not remember exact value. Took Benadryl around 10pm and
fell asleep. Woke up around midnight w/ continued chest pain and tightness. BP measured at 181/100 so came to ER. She denies SOB, MADSEN, dizziness, and vision changes.
Past History
<HERNÁN Wade - Last Filed: 09/20/24 02:27>
Past History
ED Past Medical History: HTN and Other (Patent foramen ovale)
ED Past Surgical History: Orthopedic
Social History
Tobacco: Non-smoker
Alcohol: None
Drug: None
Personal:
Living: with family
Review of Systems
<HERNÁN Wade - Last Filed: 09/20/24 02:27>
Review of Systems
Constitutional: Denies fever, fatigue or chills
Respiratory: Denies cough or trouble breathing
Cardiac: Reports chest pain and palpitations
ABD/GI: Reports abdominal pain and nausea; Denies vomiting, diarrhea or constipated
: Denies dysuria
Musculoskeletal: Reports joint pain and neck pain; Denies muscle pain
Neurological: Denies dizzy, headache, weakness or numbness
Phy Exam
<HERNÁN Wade - Last Filed: 09/20/24 02:27>
General Physical Exam
General Presentation: moderate distress
General age: appears stated age
General Skin: warm and dry
General Habitus: normal
General Mental: anxious
Cardiovascular Exam
Cardiovascular Exam: no gallop, no murmur and tachycardia
Pulmonary Exam
Pulmonary Exam: lungs clear and no respiratory distress
Gastrointestinal Exam
Gastrointestinal Exam: normal bowel sounds, soft, non distended and other (moderate epigastrc TTP )
Course
<HERNÁN Wade - Last Filed: 09/20/24 02:27>
Orders/Labs/Results
Orders:
Orders
09/20/24 00:51
Electrocardiogram (*1) Urgent
Reason for Study: Other
Other Reason for Exam: Respiratory Distress
Cardiac Monitoring- Treatment ONCE
EKG- Treatment ONCE
IV Insert/Care/Rem.- Treatment PRN
CR Chest - 2 Views Urgent
Comment:
Reason For Exam: respiratory distress
O2 Therapy [RESP] Urgent
Titrate/Wean O2 to maintain O2 sat greater than (%): 93
Special Instructions: TO MAINTAIN CONTINUOUS O2 SATS >/= 93%
Pulse Ox/cont/shift [RESP] Urgent
Quantity: 1
Special Instructions: continuous pulse ox
09/20/24 01:23
Complete Blood Count/With Diff Urgent
NT-proBNP Urgent
Troponin I Urgent
09/20/24 02:17
Comprehensive Metabolic Panel Urgent
Comment: REDRAW
09/20/24 02:26
Lorazepam [Ativan] 0.5 mg IV NOW STA
09/20/24 02:42
Troponin I Urgent
09/20/24 04:06
Enalaprilat [Vasotec] 0.625 mg IV NOW STA
09/20/24 04:26
Troponin I Urgent
09/20/24 05:19
Electrocardiogram (*1) Urgent
Reason for Study: Chest Pain
EKG- Treatment ONCE
Aspirin 325 mg PO NOW STA
Lisinopril [Zestril] 5 mg PO NOW STA
09/20/24 05:25
HydrALAZINE [Apresoline] 10 mg IV NOW STA
Abnormal Lab Results
09/20/24 09/20/24 09/20/24
01:23 02:17 02:42
WBC 12.9 H 10^3/uL
(4.8-10.8)
MPV 12.8 H fL
(7.4-10.4)
Abs Immat Gran (auto) 0.1 H 10^3/uL
(0-0.05)
Absolute Neuts (auto) 10.0 H 10^3/uL
(1.4-6.5)
Absolute Monos (auto) 1.0 H 10^3/uL
(0.1-0.6)
Neutrophils % 77.2 H %
(42.2-75.2)
Lymphocytes % 10.5 L %
(20.5-51.1)
BUN 4 L mg/dl
(7-17)
Creatinine 0.5 L mg/dL
(0.6-1.0)
Glucose 143 H mg/dl
(70-99)
AST 102 H U/L
(14-36)
ALT 47 H U/L
(0-35)
Alkaline Phosphatase 707 H U/L
(38-126)
Troponin I 0.049 H* ng/ml 0.051 H* ng/ml
11/09/24
04:26
WBC
MPV
Abs Immat Gran (auto)
Absolute Neuts (auto)
Absolute Monos (auto)
Neutrophils %
Lymphocytes %
BUN
Creatinine
Glucose
AST
ALT
Alkaline Phosphatase
Troponin I 0.073 H* D ng/ml
09/20/24 01:23
09/20/24 02:17
Vital Signs
Initial and Last Documented VS:
Initial Vital Signs
Temp Pulse Resp BP Pulse Ox
98.1 F 81 20 170/98 99
09/20/24 00:36 09/20/24 00:36 09/20/24 00:36 09/20/24 00:36 09/20/24 00:36
Last Documented Vital Signs
Temp Pulse Resp BP Pulse Ox
98.1 F 91 17 144/125 97
09/20/24 00:36 09/20/24 04:45 09/20/24 04:45 09/20/24 04:32 09/20/24 04:45
<Harlan Bey, DO - Last Filed: 09/20/24 05:58>
Orders/Labs/Results
Orders:
Orders
09/20/24 00:51
Electrocardiogram (*1) Urgent
Reason for Study: Other
Other Reason for Exam: Respiratory Distress
Cardiac Monitoring- Treatment ONCE
EKG- Treatment ONCE
IV Insert/Care/Rem.- Treatment PRN
CR Chest - 2 Views Urgent
Comment:
Reason For Exam: respiratory distress
O2 Therapy [RESP] Urgent
Titrate/Wean O2 to maintain O2 sat greater than (%): 93
Special Instructions: TO MAINTAIN CONTINUOUS O2 SATS >/= 93%
Pulse Ox/cont/shift [RESP] Urgent
Quantity: 1
Special Instructions: continuous pulse ox
09/20/24 01:23
Complete Blood Count/With Diff Urgent
NT-proBNP Urgent
Troponin I Urgent
09/20/24 02:17
Comprehensive Metabolic Panel Urgent
Comment: REDRAW
09/20/24 02:26
Lorazepam [Ativan] 0.5 mg IV NOW STA
09/20/24 02:42
Troponin I Urgent
09/20/24 04:06
Enalaprilat [Vasotec] 0.625 mg IV NOW STA
09/20/24 04:26
Troponin I Urgent
09/20/24 05:19
Electrocardiogram (*1) Urgent
Reason for Study: Chest Pain
EKG- Treatment ONCE
Aspirin 325 mg PO NOW STA
Lisinopril [Zestril] 5 mg PO NOW STA
09/20/24 05:25
HydrALAZINE [Apresoline] 10 mg IV NOW STA
Abnormal Lab Results
09/20/24 09/20/24 09/20/24
02:17 02:42
WBC 12.9 H 10^3/uL
(4.8-10.8)
MPV 12.8 H fL
(7.4-10.4)
Abs Immat Gran (auto) 0.1 H 10^3/uL
(0-0.05)
Absolute Neuts (auto) 10.0 H 10^3/uL
(1.4-6.5)
Absolute Monos (auto) 1.0 H 10^3/uL
(0.1-0.6)
Neutrophils % 77.2 H %
(42.2-75.2)
Lymphocytes % 10.5 L %
(20.5-51.1)
BUN 4 L mg/dl
(7-17)
Creatinine 0.5 L mg/dL
(0.6-1.0)
Glucose 143 H mg/dl
(70-99)
AST 102 H U/L
(14-36)
ALT 47 H U/L
(0-35)
Alkaline Phosphatase 707 H U/L
(38-126)
Troponin I 0.049 H* ng/ml 0.051 H* ng/ml
09/20/24
04:26
WBC
MPV
Abs Immat Gran (auto)
Absolute Neuts (auto)
Absolute Monos (auto)
Neutrophils %
Lymphocytes %
BUN
Creatinine
Glucose
AST
ALT
Alkaline Phosphatase
Troponin I 0.073 H* D ng/ml
09/20/24 01:23
09/20/24 02:17
Vital Signs
Initial and Last Documented VS:
Initial Vital Signs
Temp Pulse Resp BP Pulse Ox
98.1 F 81 20 170/98 99
09/20/24 00:36 09/20/24 00:36 09/20/24 00:36 09/20/24 00:36 09/20/24 00:36
Last Documented Vital Signs
Temp Pulse Resp BP Pulse Ox
98.1 F 91 17 144/125 97
09/20/24 00:36 09/20/24 04:45 09/20/24 04:45 09/20/24 04:32 09/20/24 04:45
<HERNÁN Wade - Last Filed: 09/20/24 02:27>
MDM/Problems Addressed
Differential Diagnosis Includes:
Concern for TX, aortic dissection, hypertensive emergency. Less concern for dissection due to description of sxs. Describes mild aching and not sudden, severe ripping. Will do troponin, NT-proBNP for further evaluation. Also concern for severe GERD,
chronic pancreatitis.
<Harlan Bey DO - Last Filed: 09/20/24 05:58>
*Critical Care Note
Total Time (30-74mins, 75-104mins- exclusive of procedures): Not Applicable
<Harlan Bey DO - Last Filed: 09/20/24 05:58>
Update Note
Update Note:
2:45 AM update--- my initial instinct was to do CT of the chest to rule out PE she has no tachycardia or tachypnea, has only been off of Eliquis for 1 dose, she tells me she had a severe reaction to IVP dye was told she can never get IV contrast, I
believe the risks and benefits do not support pushing this at this time, will check another troponin
4:23 AM blood pressure still up patient feeling a bit better will give a dose of IV lisinopril check with her troponin to trend
4:30 AM third troponin noted blood pressure still spiking patient still with some pain and shortness of breath believe at this point would be reasonable to put her in the hospital
ED Attending Note
<HERNÁN Wade - Last Filed: 09/20/24 02:27>
-
Portions of this chart may have been created with voice recognition software.� Occasional wrong word or��sound alike� substitutions may have occurred due to the inherent limitations of voice recognition software.
Discharge Plan
Departure
Patient Disposition: Admit
Date of Disposition: 09/20/24
Time of Disposition: 05:56
Admit to: Telemetry
Presentation/result/management discussed w/ accepting MD/DO: Hospitalist
Patient with high blood pressure during this ER visit?: Yes
Condition: Fair
Covid-19: Not Applicable
Discharge Problem:
Chest pain, Hypertension
Prescriptions:
No Action
sumatriptan succinate 50 MG tablet
50 mg PO DAILYPRN PRN (Reason: migraines)
lisinopril 5 MG tablet
5 mg PO DAILY
ascorbic acid (vitamin C) [Vitamin C] 500 MG tablet
500 mg PO TUSA
rosuvastatin 10 MG tablet
10 mg PO HS
cholecalciferol (vitamin D3) 1,000 UNITS tablet
1,000 units PO DAILY
One Daily Women 50 Plus 1 EACH tablet
1 ea PO QPM
calcium-vitamin D3-vitamin K [Citracal-D3 Soft Chew] 1 EACH tablet,chewable
1 ea PO MO
fexofenadine 60 mg Tablet
60 mg PO DAILYPRN PRN (Reason: allergies)
naproxen sodium [Aleve] 220 mg Tablet
220 mg PO Q12H
aspirin 81 MG tablet,chewable
81 mg PO QPM
loperamide [Imodium] 2 mg Capsule
2 mg PO DAILYPRN PRN (Reason: diarrhea)
polyethylene glycol 3350 [Miralax] 17 gram Powder In Packet
17 g PO QPM
meclizine 25 mg Tablet
25 mg PO DAILYPRN PRN (Reason: vertigo)
triamcinolone acetonide [Nasacort] 55 mcg Aerosol,[place]
1 spray INTRANASAL DAILY
Rx Instructions:
administer into each nostril
calcium carbonate [Tums] 200 mg calcium (500 mg) Tablet,Chewable
200 mg PO DAILYPRN PRN (Reason: sour stomach)
verapamil 100 mg Capsule, [address]
100 mg PO HS
dicyclomine 10 mg Capsule
10 mg PO DAILYPRN PRN (Reason: intestinal spasm)
Systane (PF) 0.4-0.3 % [place]
1 drp BOTH EYES TID
Biotene Dry Mouth Oral Rinse Mouthwash
15 ml MUCOUS MEMBRANE DAILYPRN PRN (Reason: dry mouth)
ciprofloxacin HCl [Cipro] 500 mg tablet
500 mg PO BID Qty: 14 0RF
metronidazole 500 mg tablet
500 mg PO TID Qty: 21 0RF
Eliquis DVT-PE Treat 30D Start 5 mg (74 tabs) tablets,dose pack
See Rx Instructions .ROUTE .COMPLEX Qty: 74 0RF
Rx Instructions:
orally per package directions
Referrals:
Radu Marinelli DO [Family Provider] -
Interventions
Interventions:
*Risk Screen - Suicide Last Done: 09/20/24 00:36
*General Assessment Last Done: 09/20/24 00:36
*Neglect/Abuse Screening Last Done: 09/20/24 00:36
ED- Fall Risk Assessment Last Done: 09/20/24 00:36
*ED COVID-19 Vaccine History Last Done: 09/20/24 00:36
ED- Cardiac Assessment Last Done: 09/20/24 01:30
ED- Neurological Assessment Last Done: 09/20/24 01:30
ED- Pulmonary Assessment Last Done: 09/20/24 01:30
Discharge Date and Time
Print Language: GRENADIAN
[2024-09-20 02:04] LABS: NT-proBNP 526 pg/ml; Troponin I 0.049 ng/ml
[2024-09-20 02:36] LABS: ALT (SGPT) 47 U/L (0-35); AST (SGOT) 102 U/L (14-36); Albumin 4.2 g/dl (3.5-5.0); Alkaline Phosphatase 707 U/L (38-126); Blood Urea Nitrogen 4 mg/dl (7-17); Calcium 9.7 mg/dl (8.4-10.2); Carbon Dioxide 28 mmol/L (22-30); Chloride 99 mmol/L (98-107); Glucose 143 mg/dl (70-99); Sodium 137 mmol/L (135-145); Total Bilirubin 1.1 mg/dl (0.2-1.3); Total Protein 6.8 g/dl (6.3-8.2); eGFR > 60.00
[2024-09-20] MEDS: ATIVAN 0.5 MG IV (02:37)
[2024-09-20 03:47] LABS: Troponin I 0.051 ng/ml
[2024-09-20] MEDS: VASOTEC 0.625 MG IV (04:14)
[2024-09-20 05:12] LABS: Troponin I 0.073 ng/ml
[2024-09-20] MEDS: APRESOLINE 10 MG IV (05:29)
[2024-09-20] MEDS: ZESTRIL 5 MG PO (05:30)
[2024-09-20] MEDS: ASPIRIN 325 MG PO (05:30)
[2024-09-20 06:53] LABS: APTT 39.2 Sec (23.4-35.0); Hematocrit 38.5 % (37.0-47.0); Mean Corp Hgb Conc. 33.8 g/dL (33.0-37.0); Mean Corpuscular Volume 85.9 fL (81.0-99.0); Red Blood Cell Count 4.48 10^6/uL (4.20-5.40); Red Cell Dist. Width 13.1 % (11.5-14.5)
--- NOTE | 2024-09-20 06:53 | HPS.HSE ---
Family Physician
-
Family Physician: Radu Marinelli
Chief Complaint
-
Chest pain, uncontrolled blood pressure
History of Present Illness
This is a 74-year-old female with past medical history significant for migraine headaches, vertigo, hypertension and recent distal DVT presenting to the emergency department with a 1 day history of substernal chest pain that radiates across the
chest.
Patient has been battling hypotensive episodes since diagnosis of a DVT about 4 weeks ago. She had a distal DVT in the left peroneal vein. She was placed on Eliquis. Patient reports that Eliquis has resulted in abdominal discomfort and dyspepsia.
She followed up with vascular physician for this issue. During that time she was noted to be hypertensive. They discussed discontinuation of the Eliquis which she apparently satisfied the patient. Prior to this she was also seen in the ED for
uncontrolled blood pressure for which she was started on lisinopril 5 mg daily. Patient denies any prior history of hypertension.
She stopped the Eliquis after the Sunday morning dose. Later on in the day the patient reported developing substernal chest pain that was 7 out of 10 and radiating from left to right across the chest. No radiation to the back. No radiation to the
neck or arms. She took some Benadryl to help her sleep but the pain remained persistent. She checked her blood pressure again at home and it was as high as 180 so she decided to come to the emergency department. She reports ongoing nausea. She
denies any diaphoresis. She denies dizziness or lightheadedness.
Patient denies recent exertional dyspnea, exertional chest pain, palpitations, and reports that she has had prior stress test that has been negative.
On arrival in the emergency department she was afebrile, blood pressures were in the 140s to 160s systolic. She was satting at 90% on room air. Chest x-ray shows no acute infiltrates. ECG shows a rate of 79 and T wave inversions in leads III and
aVF with a left anterior fascicular block which is unchanged from recent. Initial troponin was elevated at 0.04 and repeat troponins tommy to 0.07. He had a white count of 13,000 with rest of the CBC unremarkable. Electrolytes that BUN/creatinine
were unremarkable. Labs were also notable for a elevated alk phos of 700 with slight elevations in ALT and AST. She denies any alcohol use.
Medical History
Past Medical History
Past Medical History: Reports HTN and Hypercholesterolemia
Additional Past Medical History:
Migraine headaches
Vertigo
Past Surgical History: Reports Other
Social History
Tobacco: Non-smoker
Alcohol: None
Drug: None
Personal:
Living: With Family
Employment: Retired
Family History
Family History: Not pertinent
Allergies / Home Medications
Allergies reflects when Allergies were last updated in [employer] [facility].
Home Medications with original date entered in [employer] [facility]
Allergy/Medication List:
Allergies
Allergy/AdvReac Type Severity Reaction Status Date / Time
acetaminophen [From Percocet] Allergy Severe Nausea / Verified 09/20/24 00:36
Vomiting
formaldehyde Allergy Severe skin Verified 09/20/24 00:36
problems
lactose Allergy Severe diarrhea Verified 09/20/24 00:36
latex [Latex] Allergy Severe Rash Verified 09/20/24 00:36
ondansetron [From Zofran] Allergy Severe headache Verified 09/20/24 00:36
oxycodone [From Percocet] Allergy Severe Nausea / Verified 09/20/24 00:36
Vomiting
povidone-iodine Allergy Severe Hives Verified 09/20/24 00:36
[From Betadine]
soap [From Betadine] Allergy Severe Hives Verified 09/20/24 00:36
Sulfa (Sulfonamide Allergy Severe Unknown Verified 09/20/24 00:36
Antibiotics)
iodine [Iodine] Allergy hives, Verified 09/20/24 00:36
nausea &
vomiting
oxycodone HCl [From Percodan] Allergy Vomiting Verified 09/20/24 00:36
oxycodone terephthalate Allergy Vomiting Verified 09/20/24 00:36
[From Percodan]
Penicillins Allergy Rash Verified 09/20/24 00:36
propoxyphene HCl Allergy nausea & Verified 09/20/24 00:36
[From Darvon] vomiting
propoxyphene napsylate Allergy Unknown Verified 09/20/24 00:36
[From Darvocet-N 100]
tramadol Allergy Vomiting Verified 09/20/24 00:36
hay fever Allergy Severe Unknown Uncoded 09/20/24 00:36
lobster Allergy Severe GERD Uncoded 09/20/24 00:36
Home Medications
lisinopril 5 mg tablet 5 mg PO DAILY Blood pressure 11/23/18
rosuvastatin 10 mg tablet 10 mg PO HS 04/28/21
aspirin 81 mg chewable tablet 81 mg PO QPM 07/23/23
calcium carbonate (Tums) 200 mg PO DAILYPRN PRN sour stomach 07/23/23
dicyclomine 10 mg capsule 10 mg PO DAILYPRN PRN intestinal spasm 07/23/23
fexofenadine 60 mg tablet 60 mg PO DAILYPRN PRN allergies 07/23/23
meclizine 25 mg tablet 25 mg PO DAILYPRN PRN vertigo 07/23/23
saliva substitute combo no.9 (Biotene Dry Mouth Oral Rinse mouthwash) 15 ml mucous membrane DAILYPRN PRN dry mouth 07/23/23
Reyvow 50mg tablet, 50mg PO PRN migraine
Review of Systems
-
History Source: Patient
Constitutional: Reports No Symptoms
EENT: Reports No Symptoms
Respiratory: Reports No Symptoms
Cardiac: Reports Chest Pain
Abdomen/GI: Reports No Symptoms
: Reports No Symptoms
Musculoskeletal: Reports No Symptoms
Skin: Reports No Symptoms
Neurological: Reports No Symptoms
Endocrine: Reports No Symptoms
Hematologic/Lymphatic: Reports No Symptoms
Psych: Reports Anxiety
Physical Exam
Vital Signs
Vital Signs
Temp Pulse Resp BP Pulse Ox
98.1 F 91 17 144/125 97
09/20/24 00:36 09/20/24 04:45 09/20/24 04:45 09/20/24 04:32 09/20/24 04:45
Physical Exam
General: Well Developed, Well Nourished and Conversant
HEENT: NormoCephalic, Anicteric, Moist mucous membranes and Atraumatic
Respiratory: Clear
Cardiac: S1/S2 and Regular Rhythm
Breast: Deferred by me
GI: Soft, Non Tender, Non Distended and Normal Bowel Sounds
Rectal: Deferred by Provider
Genito-urinary: Deferred by me
Musculoskeletal: No Clubbing, No Cyanosis and No Edema
Skin: Warm
Neuro: AO x 3
Hematologic/Lymphatic: No Lymphadenopathy
Psych: Calm
Laboratory Results
-
09/20/24 02:17
Laboratory Results
Total Bilirubin 1.1 mg/dl (0.2-1.3) 09/20/24 02:17
AST 102 U/L (14-36) H 09/20/24 02:17
ALT 47 U/L (0-35) H 09/20/24 02:17
Alkaline Phosphatase 707 U/L (38-126) H 09/20/24 02:17
Troponin I 0.073 ng/ml H* D 09/20/24 04:26
Data Reviewed
-
Diagnostic Radiology: Image Personally Visualized and interpreted
Medical Tests (Nuc Med, Echo, EKG etc): Image Personally Visualized and interpreted
Lab Data: Labs Reviewed by me
Old Records: Reviewed
Impression/Plan
-
IMPRESSION:
74 female with substernal chest pain for hours, anxiety and elevated troponin to 0.07. ECG is unchanged from prior and w/o acute ischemia. BP was as high as 180 systolic. Possible NSTEMI and less likely dissection. Unlikely PE given recent
treatment of DVT with eliquis and the DVT was distal.
PLAN:
1. Chest pain - ACS/NSTEMI
- admit to ivu
- s/p aspirin 325
- start heparin gtt for rising troponin w/ chest pain
- continue to trend troponin
- ntg prn chest pain
- npo for now pending cardiology evaluation
- lipid panel and a1c
- history of allergy to contrast dye
- cardiology consult
- continue lisinopril for bp control.
2. HTN -
- currently 130/85 after lorazepam 0.5 and lisinopril 5
- monitor for now and continue lisinopril 5 daily
3.Migraine olivares
- patient own Reyvow 50mg po prn, will not tolerate any other med for migraines
- for pain, acetaminophen or tylenol #3
- for nasuea, compazine or reglan, no zofran
4. DVT - Left peroneal DVT. Vascular discontinued eliquis due to abdominal complaints and anxiety and the fact the its a distal DVT. They plan follow up u/s. Initially considered PE but last dose of eliquis was yesterday morning so thought
unlikely and she has history of anaphylaxis to iodine contrast dye, will get V/Q scan as she was not amenable to pre-treatment for the IV contrast for a PE study.
- on heparin for now, last eliquis 1 day ago.
- V/Q scan
Code Status - Full Code
[2024-09-20] MEDS: HEPARIN 25000 UNITS/250 ML IV (07:23)
[2024-09-20] MEDS: ZESTRIL PO (07:49)
[2024-09-20 08:04] LABS: Mean Platelet Volume 12.1 fL (7.4-10.4); Platelet Count 98 10^3/uL (130-400)
--- NOTE | 2024-09-20 10:36 | PTCARENOTE ---
Dr Marti notified of Pt platelet result of 98, as per Heparin protocol.
[2024-09-20] MEDS: TYLENOL 650 MG PO ×3 (12:49→23:49)
[2024-09-20 13:44] LABS: APTT 73.3 Sec (23.4-35.0)
--- NOTE | 2024-09-20 14:03 | PTCARENOTE ---
Pt c/o headache, med with Tylenol 650 mg po as ordered with relief noted.
--- NOTE | 2024-09-20 14:33 | PTCARENOTE ---
Dr Marti asked if he wanted tech called in to do VQ scan, he said it could wait until tomorrow. Pt sent for U/S of abdomen. Pt also sent for CT scan head and chest.
--- NOTE | 2024-09-20 15:14 | W.PN.UPDATE ---
Update Note
Progress Note Update
Physical Exam
General: Well Developed, Well Nourished and Conversant
HEENT: NormoCephalic, Anicteric, Moist mucous membranes and Atraumatic
Respiratory: Clear
Cardiac: S1/S2 and Regular Rhythm
Breast: Deferred by me
GI: Soft, Non Tender, Non Distended and Normal Bowel Sounds
Rectal: Deferred by Provider
Genito-urinary: Deferred by me
Musculoskeletal: No Clubbing, No Cyanosis and No Edema; left chest wall tenderness
Skin: Warm
Neuro: AO x 3
Hematologic/Lymphatic: No Lymphadenopathy
Psych: Calm
Ultrasound showing hepatic/pancreatic masses, concern for malignancy
This would contribute to the rationale for why she had a DVT and abd issues recently
Continue heparin drip for now
Oncology consulted
MR abdomen/pelvis
CT chest, CT head
Low suspicion for cardiac etiology at this time; chest wall tenderness and area pain is detected; can hold on cardiology consult
Elevated troponin most likely nonischemic myocardial injury secondary to malignancy; trend to peak - if continued to rise - will get cards back on board
can cont asa
VQ scan for possible PE due to iodine related anaphylaxis
probnp add on
ECHO
Total time spent on today's encounter was 50 minutes which included time spent in counseling the patient/family regarding diagnosis and treatment plan as listed above, goals of care, and symptom management. Case was discussed with nursing staff,
specialists, and care coordinators/case management. All labs and imaging personally reviewed by me. Remainder the time spent in detailed review of previous records, lab data, imaging, and other medical provider documentation.
[2024-09-20 16:22] LABS: NT-proBNP 654 pg/ml
[2024-09-20 16:25] LABS: D-Dimer > 20.00 ug/mlFEU (0.00-0.50)
[2024-09-20] MEDS: LOW STRENGTH ASPIRIN 81 MG PO (17:47)
[2024-09-20 19:59] LABS: APTT 74.3 Sec (23.4-35.0)
[2024-09-20 20:13] LABS: Troponin I 0.198 ng/ml
[2024-09-20] MEDS: CRESTOR 10 MG PO (22:42)
--- NOTE | 2024-09-20 22:52 | PTCARENOTE ---
Pt received start of shift, HR SR. Heparin infusing at 850u/hr per protocol. Reinforced CAD education w/ pt. Updated pt on plan of care, pt states understanding. Pt denying CP or SOB. Pt c/o slight MADSEN - managing with PRN tylenol, see MAR.
[2024-09-21 03:33] VITALS: BP 135/81
[2024-09-21 04:31] LABS: ALT (SGPT) 44 U/L (0-35); AST (SGOT) 99 U/L (14-36); Albumin 3.9 g/dl (3.5-5.0); Alkaline Phosphatase 670 U/L (38-126); Blood Urea Nitrogen 9 mg/dl (7-17); Calcium 9.6 mg/dl (8.4-10.2); Carbon Dioxide 27 mmol/L (22-30); Chloride 99 mmol/L (98-107); Estimated Creatinine Clearance 67 ml/min; Glucose 130 mg/dl (70-99); Magnesium 2.1 mg/dl (1.6-2.3); Potassium 4.2 mmol/L (3.5-5.1); Sodium 136 mmol/L (135-145); Total Bilirubin 0.9 mg/dl (0.2-1.3); Total Protein 6.5 g/dl (6.3-8.2); eGFR > 60.00
[2024-09-21 04:34] LABS: Hematocrit 37.6 % (37.0-47.0); Hemoglobin 12.9 g/dL (12.0-16.0); Mean Corp Hgb Conc. 34.3 g/dL (33.0-37.0); Mean Corpuscular Hgb 29.4 pg (27.0-31.0); Mean Corpuscular Volume 85.6 fL (81.0-99.0); Platelet Count 134 10^3/uL (130-400); Red Blood Cell Count 4.39 10^6/uL (4.20-5.40); Red Cell Dist. Width 13.2 % (11.5-14.5); White Blood Cell Count 12.8 10^3/uL (4.8-10.8)
[2024-09-21 04:40] LABS: APTT 90.7 Sec (23.4-35.0)
[2024-09-21 04:44] LABS: Troponin I 0.129 ng/ml
[2024-09-21 05:53] VITALS: BMI 27.2
[2024-09-21] MEDS: TYLENOL 650 MG PO ×2 (07:34→13:42)
[2024-09-21] MEDS: ZESTRIL 5 MG PO (07:35)
[2024-09-21 07:41] VITALS: BP 141/88
--- NOTE | 2024-09-21 11:18 | CON.ONC ---
Impression
Impression
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
Plan
Plan
for further imaging to assess possible site of origin-- likely related to underlying VTE-- d/w patient proceeding with biopsy to then f/u as outpt with treatment plan
Patient History
History of Present Illness
74-year-old white female with a longstanding history of hypertension diagnosed 4 weeks prior with left peroneal DVT unprovoked found in outpatient imaging by her clerk of court following therapy for plantars fasciitis which had not improved. She has no
history of prior VTE. There is no family history of clotting disorders. She has been evaluated by Dr. Ferrera in the outpatient setting for the same. She notes having marked alterations of medications due to drug interactions. She came to the
emergency room 24 hours prior to admission for complaints of chest discomfort related to elevated blood pressure noted initially in the vascular surgeons office and which did not resolve within 24 hours during home self monitoring prompting her to
come to the [facility] emergency room
In the emergency room CT scan of the chest was ordered to assess chest discomfort for which hypoattenuating hepatic masses were noted of the lower with subcentimeter pulmonary nodules of the lungs. Study was done contrast. In addition a CT scan of
the head noncontrast was performed noting no evidence of bleed or infarct. Ultrasound of the abdomen was performed for which findings suspicious for had hepatic as well as pancreatic masses were noted.
Past-Medical/Surgical History
Hypertension; hyperlipidemia
Patient Medication
�Medication �Instructions �Recorded �Confirmed �Last Taken �Type
lisinopril 5 mg tablet 5 mg PO DAILY Blood pressure 11/23/18 09/20/24 09/20/24 06:00 History
ascorbic acid (vitamin C) 500 mg 500 mg PO TUSA supplement 04/28/21 09/20/24 07/21/23 History
tablet (Vitamin C)
cholecalciferol (vitamin D3) 25 1,000 units PO DAILY 06/09/20/24 09/19/24 08:00 History
mcg (1,000 unit) tablet
multivitamin with [id number]-DY-[id number] 1 ea PO QPM 04/28/21 09/20/24 07/21/23 History
400 mcg-120 mg tablet (One Daily
Women 50 Plus)
rosuvastatin 10 mg tablet 10 mg PO HS 04/28/21 09/20/24 09/19/24 20:00 History
calcium carbonate (Tums) 200 mg PO DAILYPRN PRN sour stomach 07/23/23 09/20/24 07/22/23 History
dicyclomine 10 mg capsule 10 mg PO DAILYPRN PRN intestinal 07/23/23 09/20/24 Unknown History
spasm
fexofenadine 60 mg tablet 60 mg PO DAILYPRN PRN allergies 07/23/23 09/20/24 Unknown History
loperamide 2 mg capsule 2 mg PO DAILYPRN PRN diarrhea 07/23/23 09/20/24 07/22/23 History
meclizine 25 mg tablet 25 mg PO DAILYPRN PRN vertigo 07/23/23 09/20/24 07/21/23 History
peg 400-propylene glycol (PF) 0.4 1 drp BOTH EYES TID 07/23/23 09/20/24 09/20/24 05:00 History
%-0.3 % eye drops in a dropperette
(Systane (PF))
polyethylene glycol 3350 17 gram 17 g PO DIRECTED PRN 07/23/23 09/20/24 07/21/23 History
oral powder packet (Miralax) constipation
saliva substitute combo no.9 15 ml mucous membrane DAILYPRN PRN 07/23/23 09/20/24 Unknown History
(Biotene Dry Mouth Oral Rinse dry mouth
mouthwash)
triamcinolone acetonide 55 mcg 1 spray intranasal DAILY 07/23/23 09/20/24 07/22/23 History
nasal spray aerosol (Nasacort)
omeprazole 20 mg capsule,delayed 20 mg PO DAILY 09/20/24 09/20/24 Unknown History
release
Active Medications
Generic Name Dose Route Start Last Admin
Trade Name Freq PRN Reason Stop Dose Admin
Acetaminophen 650 mg 09/20/24 12:34 09/21/24 07:34
Acetaminophen 325 Mg Tablet PO 10/18/24 12:33 650 mg
Q6HPRN PRN Administration
mild pain/ fever>100.5F
Aspirin 81 mg 09/20/24 18:00 09/20/24 17:47
Aspirin 81 Mg Chewable Tablet PO 10/18/24 17:59 81 mg
QPM ANAIS Administration
Heparin Sodium 25,000 units in 250 mls @ 0 mls/hr 09/20/24 06:00 09/20/24 07:23
Heparin 99539 Units/250 Ml IV 250 mls
PER PROTOCOL ANAIS Administration
Protocol
Per Protocol
Lisinopril 5 mg 09/20/24 08:00 09/21/24 07:35
Lisinopril 5 Mg Tablet PO 10/18/24 07:59 5 mg
DAILY ANAIS Administration
Meclizine HCl 25 mg 09/20/24 06:10
Meclizine 25 Mg Tablet PO 10/18/24 06:09
DAILYPRN PRN
vertigo
Nitroglycerin 0.4 mg 09/20/24 10:38
Nitroglycerin 0.4 Mg Sl Tablet SL 10/18/24 10:37
[id number] PRN
chest pain
Rosuvastatin Calcium 10 mg 09/20/24 22:00 09/20/24 22:42
Rosuvastatin (Crestor) 10 Mg Tablet PO 10/18/24 21:59 10 mg
HS ANAIS Administration
Review of Systems
-
History Source: Patient
All Other Systems: Reviewed and Negative
Physical Exam
-
General: No Apparent Distress
HEENT: Moist Mucous Membranes
Cardiology: Normal Sinus Rhythm
Pulmonary: Clear
GI: Soft
Musculoskeletal: No Cyanosis and No Edema
Neurology: Non Focal
Psych: Calm
Labs
Lab Results
WBC 12.8 10^3/uL (4.8-10.8) H 09/21/24 03:42
RBC 4.39 10^6/uL (4.20-5.40) 09/21/24 03:42
Hgb 12.9 g/dL (12.0-16.0) 09/21/24 03:42
Hct 37.6 % (37.0-47.0) 09/21/24 03:42
MCV 85.6 fL (81.0-99.0) 09/21/24 03:42
MCH 29.4 pg (27.0-31.0) 09/21/24 03:42
MCHC 34.3 g/dL (33.0-37.0) 09/21/24 03:42
RDW 13.2 % (11.5-14.5) 09/21/24 03:42
Plt Count 134 10^3/uL (130-400) D 09/21/24 03:42
MPV 11.0 fL (7.4-10.4) H 09/21/24 03:42
Abs Immat Gran (auto) 0.1 10^3/uL (0-0.05) H 09/20/24 01:23
Absolute Neuts (auto) 10.0 10^3/uL (1.4-6.5) H 09/20/24 01:23
Absolute Lymphs (auto) 1.4 10^3/uL (1.2-3.4) 09/20/24 01:23
Absolute Monos (auto) 1.0 10^3/uL (0.1-0.6) H 09/20/24 01:23
Absolute Eos (auto) 0.5 10^3/uL (0-0.7) 09/20/24 01:23
Absolute Basos (auto) 0.1 10^3/uL (0-0.2) 09/20/24 01:23
Immature Gran % 0.4 % (0-0.5) 09/20/24 01:
Neutrophils % 77.2 % (42.2-75.2) H 09/20/24 01:
Lymphocytes % 10.5 % (20.5-51.1) L 09/20/24 01:23
Monocytes % 7.4 % (1.7-9.3) 09/20/24:
Eosinophils % 3.6 % (0-6) 09/20/24:
Basophils % 0.9 % (0-2) 09/20/24:
Creatinine 0.5 mg/dL (0.6-1.0) L 09/21/24 03:42
Vital Signs
Vital Signs
Temp Pulse Resp BP Pulse Ox
98.5 F 71 20 135/81 97
09/21/24 07:35 09/21/24 06:45 09/21/24 07:35 09/21/24 03:33 09/21/24 08:21
[2024-09-21] MEDS: XANAX 0.5 MG PO (11:19)
--- NOTE | 2024-09-21 11:50 | PTCARENOTE ---
Pt felt anxious and upset prior to MRI and after receiving news of her Abd U/S and CT scan. Pt requested med for anxiety. Xanax 0.5 mg po x1 given to Pt as ordered by Dr Marti.
--- NOTE | 2024-09-21 14:26 | W.PN.HOSP.TC ---
Today's Communication/Plan
-
MRI abd/pelvis
hep ggt
V/q scan
asa
echo
Assessment / Plan
Assessment / Plan
Physical Exam
General: Well Developed, Well Nourished and Conversant
HEENT: NormoCephalic, Anicteric, Moist mucous membranes and Atraumatic
Respiratory: Clear
Cardiac: S1/S2 and Regular Rhythm
Breast: Deferred by me
GI: Soft, Non Tender, Non Distended and Normal Bowel Sounds
Rectal: Deferred by Provider
Genito-urinary: Deferred by me
Musculoskeletal: No Clubbing, No Cyanosis and No Edema
Skin: Warm
Neuro: AO x 3
Hematologic/Lymphatic: No Lymphadenopathy
Psych: Calm
PLAN:
# Chest pain
�Doubt this is ACS, possibly pleuretic
� Troponins peaked
� Follow-up echocardiogram
� May be pleuritic in nature versus
- V/Q scan as cannot tolerate contrast
-hep ggt for now
# Transaminitis
#Vague abdominal symptoms prior to admission causing Eliquis to be stopped/held
#Pancreatic/hepatic masses
#4. Millimeter pulmonary nodule
� Evidence of hepatic, pancreatic masses�concern for malignancy/metastasis
� Oncology consulted
� Follow-up abdominal/pelvis MRI
� Anticipate further workup as per oncology including biopsy
#Elevated troponin
� Most likely nonischemic myocardial injury secondary to malignancy, although there is a risk for pulmonary embolism
� Follow-up echo
� Follow-up VQ scan
� Troponins peaked
� Chest pain has resolved
�Continue heparin drip
� Continue aspirin
#Hypertension
- continue lisinopril for bp control.
#Migraine olivares
- patient own Reyvow 50mg po prn, will not tolerate any other med for migraines
- for pain, acetaminophen or tylenol #3
- for nasuea, compazine or reglan, no zofran
- CT head neg
# DVT - Left peroneal DVT. Vascular discontinued eliquis due to abdominal complaints and anxiety and the fact the its a distal DVT. They plan follow up u/s. Initially considered PE but last dose of eliquis was yesterday morning so thought
unlikely and she has history of anaphylaxis to iodine contrast dye, will get V/Q scan as she was not amenable to pre-treatment for the IV contrast for a PE study.
- on heparin for now
-now with suspected malignancy - will need lifelong anticoag
-F/u V/Q scan
Code Status - Full Code
Total time spent on today's encounter was 50 minutes which included time spent in counseling the patient/family regarding diagnosis and treatment plan as listed above, goals of care, and symptom management. Case was discussed with nursing staff,
specialists, and care coordinators/case management. All labs and imaging personally reviewed by me. Remainder the time spent in detailed review of previous records, lab data, imaging, and other medical provider documentation.
Anticipated Discharge: 24 - 48 hours
Subjective/Interval History
-
Date of Service: September 21, 2024
No acute events overnight
Oncology consulted yesterday in light of ultrasound findings
Chest pain has resolved
Objective Data
-
Labs:
Laboratory Results
09/21/24
03:42
WBC 12.8 H
Hgb 12.9
Hct 37.6
Plt Count 134 D
APTT 90.7 H
Sodium 136
Potassium 4.2
Chloride 99
Carbon Dioxide 27
BUN 9
Creatinine 0.5 L
Glucose 130 H
Calcium 9.6
Total Bilirubin 0.9
AST 99 H
ALT 44 H
Alkaline Phosphatase 670 H
Vital Signs:
Vital Signs
Temp Pulse Resp BP Pulse Ox
98.5 F 71 20 135/81 97
09/21/24 07:35 11/10/24 06:45 09/21/24 07:35 09/21/24 03:33 09/21/24 08:21
I&O
09/20/24 09/21/24 09/22/24
06:59 06:59 06:59
Intake Total 240 / 240
Output Total 550 / 550
Balance -310 / -310
Review of Systems
-
History Source: Patient
All other systems: Not reviewed unless documented
Data Reviewed
-
Diagnostic Radiology: Image personally visualized and interpreted
CT Scan: Image personally visualized and interpreted
Labs: Labs Reviewed by me
--- NOTE | 2024-09-21 14:38 | PTCARENOTE ---
Pt went for MRI abd/pelvis today. C/o headache, med with Tylenol 650 mg po as ordered.
[2024-09-21] MEDS: HEPARIN 25000 UNITS/250 ML IV (15:16)
[2024-09-21 15:24] VITALS: BP 143/79
[2024-09-21] MEDS: NON-FORMULARY ITEM 1 UNIT PO (16:04)
[2024-09-21] MEDS: LOW STRENGTH ASPIRIN PO (17:48)
--- NOTE | 2024-09-21 18:27 | PTCARENOTE ---
Pt refused aspirin 81 mg dose tonight. She feels it is too much blood thinner. Attempted to reassure Pt, but she feels more comfortable refusing it.
[2024-09-21 19:18] VITALS: BP 136/80
[2024-09-21] MEDS: XANAX 0.25 MG PO (21:43)
[2024-09-21] MEDS: CRESTOR 10 MG PO (21:43)
[2024-09-21 21:46] VITALS: BP 140/72
--- NOTE | 2024-09-21 23:09 | PTCARENOTE ---
Pt received start of shift, HR SR w/ BBB. Pt c/o moderate-severe anxiety since talking with oncology. Pt requesting an anxiety medication to help her sleep through the night. [facility] [employer] Marychuy, 0.25mg PO Xanax ordered and administered - see JAN. Pt denies
any CP, SOB or lightheadedness/dizziness.
[2024-09-22] MEDS: TYLENOL 650 MG PO ×2 (01:47→13:42)
[2024-09-22 04:06] VITALS: BP 128/58
[2024-09-22 04:53] LABS: Hematocrit 36.8 % (37.0-47.0); Hemoglobin 12.4 g/dL (12.0-16.0); Mean Corp Hgb Conc. 33.7 g/dL (33.0-37.0); Mean Corpuscular Hgb 29.2 pg (27.0-31.0); Mean Corpuscular Volume 86.6 fL (81.0-99.0); Mean Platelet Volume 10.6 fL (7.4-10.4); Platelet Count 173 10^3/uL (130-400); Red Blood Cell Count 4.25 10^6/uL (4.20-5.40); Red Cell Dist. Width 13.1 % (11.5-14.5); White Blood Cell Count 11.8 10^3/uL (4.8-10.8)
[2024-09-22 05:18] LABS: ALT (SGPT) 38 U/L (0-35); AST (SGOT) 76 U/L (14-36); Albumin 3.7 g/dl (3.5-5.0); Alkaline Phosphatase 651 U/L (38-126); Blood Urea Nitrogen 7 mg/dl (7-17); Calcium 9.2 mg/dl (8.4-10.2); Carbon Dioxide 26 mmol/L (22-30); Chloride 100 mmol/L (98-107); Estimated Creatinine Clearance 67 ml/min; Glucose 117 mg/dl (70-99); Potassium 3.9 mmol/L (3.5-5.1); Sodium 136 mmol/L (135-145); Total Bilirubin 0.7 mg/dl (0.2-1.3); Total Protein 6.2 g/dl (6.3-8.2); eGFR > 60.00
[2024-09-22 06:00] VITALS: BMI 27.5
[2024-09-22 08:24] VITALS: BP 137/79
[2024-09-22] MEDS: ZESTRIL 5 MG PO (09:50)
--- NOTE | 2024-09-22 10:25 | PTCARENOTE ---
Received patient this morning resting in bed, echo done at the bedside, for VQ scan later this AM or early afternoon.
[2024-09-22 11:42] LABS: APTT 59.5 Sec (23.4-35.0)
[2024-09-22 12:19] VITALS: BP 145/82
--- NOTE | 2024-09-22 13:38 | CM ---
Reviewed chart. Met with Mrs. Segura to review discharge plans. She states prior to admission she resides alone in a one story home with three steps to enter. She states prior to admission she ambulates with a single point cane. She states she in
independent with ambulation and adls. She states she has a single point cane and rolling walker at home. She states she has a prescription plan and uses [facility]. Will need to see her current functional level to see if she will have any
skilled care needs. She states she had [facility] in the past when she had her back surgery. Medical work-up in progress. The discharge plan is to return home when medically stable.
--- NOTE | 2024-09-22 13:48 | W.PN.HOSP.TC ---
Today's Communication/Plan
-
Await VQ
Assessment / Plan
Assessment / Plan
74-year-old female presented with chest pain and poorly controlled blood pressure. Patient was diagnosed DVT 4 weeks prior to admission and was started on Eliquis. She had some abdominal discomfort and dyspepsia and Eliquis was discontinued.
MRI of the abdomen and pelvis-3.1 and 1.5 cm mass in the body of the pancreas highly suspicious for malignancy such as pancreatic adenocarcinoma. Innumerable hepatic metastasis. Portacaval lymphadenopathy concerning for mariam metastasis.
Head CT-no acute changes
EKG-normal sinus rhythm, incomplete right bundle branch block, left anterior physical block, possible left atrial enlargement.
CVS: S1-S2 normal, ssm at apex
Chest: CTA B/L
Abdomen: Soft, NT / Bowel sounds present
Extremities: No edema
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
# Chest pain - see below
Trop Trending down
Check VQ
Echo 09/22/2024-normal biventricular size and systolic function. No regional wall motion abnormality. Mild concentric LVH. EF 60 to 65%. Trace MR. Mild TR. Pulmonary artery pressure 28 mmHg. Interatrial septum has dropout in the midportion
cannot exclude PFO can consider bubble study no significant change since 12/06/2018 which also suggested a possible PFO.
# Elevated troponin likely nonischemic myocardial injury
Also rule out PE
VQ scan today
Current heparin drip and aspirin
# Pancreatic and hepatic masses along with 4 mm pulmonary nodule
Transaminitis
Vague abdominal discomfort
Check CA 19-9
Oncology consulted
# Left peroneal DVT-now off of Eliquis as outpatient. VQ scan pending if has PE will need lifelong anticoagulation given malignancy could be a possibility factor
# Hypertension-continue lisinopril
# Hyperlipidemia-continue statin
# Migraines
# GERD-continue PPI
# Chronic Vertigo-on as needed meclizine
# Diverticulosis
# IBS on as needed dicyclomine and Imodium
Colonoscopy 01/20/2020-normal mucosa in the entire examined colon. Tortuous colon. Diverticulosis. Internal hemorrhoids.
# Full code
Anticipated Discharge: Within 24 hours
Subjective/Interval History
-
Date of Service: September 22, 2024
Objective Data
-
Labs:
Laboratory Results
09/22/24 09/22/24
04:12 11:21
WBC 11.8 H
Hgb 12.4
Hct 36.8 L
Plt Count 173 D
APTT 72.0 H 59.5 H
Sodium 136
Potassium 3.9
Chloride 100
Carbon Dioxide 26
BUN 7
Creatinine 0.5 L
Glucose 117 H
Calcium 9.2
Total Bilirubin 0.7
AST 76 H
ALT 38 H
Alkaline Phosphatase 651 H
Vital Signs:
Vital Signs
Temp Pulse Resp BP Pulse Ox
98.9 F 83 18 145/82 98
09/22/24 12:22 09/22/24 13:30 09/22/24 12:22 09/22/24 12:19 09/22/24 12:22
I&O
09/21/24 09/22/24 09/23/24
06:59 06:59 06:59
Intake Total 240 / 240 600 / 600
Output Total 550 / 550 1225 / 1225
Balance -310 / -310 -625 / -625
--- NOTE | 2024-09-22 14:28 | W.PN.ONC ---
Today's Communication / Plan
-
Will proceed with liver biopsy. Discussed with patient.
Impression
Impression
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
Plan
Plan
for further imaging to assess possible site of origin-- likely related to underlying VTE-- d/w patient proceeding with biopsy to then f/u as outpt with treatment plan
Subjective/Objective
Subjective/Objective
She is feeling reasonably well. She reports no new symptoms. Examination is unchanged. She continues on a heparin drip.
Vital Signs:
Vital Signs
Temp Pulse Resp BP Pulse Ox
98.9 F 83 18 145/82 98
09/22/24 12:22 09/22/24 13:30 09/22/24 12:22 09/22/24 12:19 09/22/24 12:22
Lab Results:
Laboratory Data
WBC 11.8 10^3/uL (4.8-10.8) H 09/22/24 04:12
Hgb 12.4 g/dL (12.0-16.0) 09/22/24 04:12
Plt Count 173 10^3/uL (130-400) D 09/22/24 04:12
APTT 59.5 Sec (23.4-35.0) H 09/22/24 11:21
eGFR > 60.00 09/22/24 04:12
Orders
Orders
Orders From Last 24 Hours
09/22/24 14:27
Consult Interventional Radiology [IRAD CONSULT] Routine
--- NOTE | 2024-09-22 14:58 | CM ---
Reviewed chart. Met with Mrs. Chan to review discharge plans. She states prior to admission she resides with her spouse in a two story home in an [facility]. She just recently moved in. She states she has one step to
enter. She states she has a first floor set-up. She states prior to admission she was independent with ambulation and adls. She states she has a grabber at home and no other DME in the home. She states she has a prescription plan with
[employer] and uses [facility]. Medical work-up in progress. The discharge plan is to return priscilla with her spouse when medically stable.
[2024-09-22 15:07] VITALS: BP 120/68
[2024-09-22] MEDS: HEPARIN 25000 UNITS/250 ML IV (17:58)
[2024-09-22] MEDS: LOW STRENGTH ASPIRIN 81 MG PO (17:58)
[2024-09-22 19:50] VITALS: BP 134/71
[2024-09-22] MEDS: CRESTOR 10 MG PO (20:00)
[2024-09-22 20:20] LABS: APTT 87.6 Sec (23.4-35.0)
[2024-09-22 22:01] VITALS: BP 142/69
[2024-09-23] VITALS (15 sets, daily range): BP systolic 66–154; BP diastolic 58–106; BMI 27.9
[2024-09-23] MEDS: TYLENOL 650 MG PO ×2 (02:15→15:01)
[2024-09-23 02:19] LABS: Hematocrit 34.1 % (37.0-47.0); Hemoglobin 11.6 g/dL (12.0-16.0); Mean Corpuscular Hgb 29.4 pg (27.0-31.0); Mean Corpuscular Volume 86.5 fL (81.0-99.0); Mean Platelet Volume 10.4 fL (7.4-10.4); Platelet Count 216 10^3/uL (130-400); Red Blood Cell Count 3.94 10^6/uL (4.20-5.40); White Blood Cell Count 12.1 10^3/uL (4.8-10.8)
[2024-09-23 02:29] LABS: APTT 108.5 Sec (23.4-35.0)
[2024-09-23 02:34] LABS: ALT (SGPT) 40 U/L (0-35); AST (SGOT) 88 U/L (14-36); Albumin 3.4 g/dl (3.5-5.0); Alkaline Phosphatase 623 U/L (38-126); Blood Urea Nitrogen 8 mg/dl (7-17); Carbon Dioxide 25 mmol/L (22-30); Chloride 102 mmol/L (98-107); Estimated Creatinine Clearance 68 ml/min; Glucose 121 mg/dl (70-99); Potassium 4.1 mmol/L (3.5-5.1); Sodium 137 mmol/L (135-145); Total Bilirubin 0.6 mg/dl (0.2-1.3); Total Protein 5.9 g/dl (6.3-8.2); eGFR > 60.00
[2024-09-23] MEDS: ZESTRIL 5 MG PO (08:11)
--- NOTE | 2024-09-23 08:43 | PTCARENOTE ---
IRAD note: Patient is on Aspirin 81mg. Last dose yesterday evening. Dr. Navarro made aware. Per Dr. Navarro okay to proceed with Liver biopsy
--- NOTE | 2024-09-23 10:48 | W.PN.HOSP.TC ---
Today's Communication/Plan
-
Liver mass biopsy today
Heparin to be held and restarted per IR policy and timing of biopsy
[facility] Lovenox
Choice of anticoagulant need to be determined for discharge.
Assessment / Plan
Assessment / Plan
74-year-old female presented with chest pain and poorly controlled blood pressure. Patient was diagnosed DVT 4 weeks prior to admission and was started on Eliquis. She had some abdominal discomfort and dyspepsia and Eliquis was discontinued.
MRI of the abdomen and pelvis-3.1 and 1.5 cm mass in the body of the pancreas highly suspicious for malignancy such as pancreatic adenocarcinoma. Innumerable hepatic metastasis. Portacaval lymphadenopathy concerning for mariam metastasis.
Head CT-no acute changes
EKG-normal sinus rhythm, incomplete right bundle branch block, left anterior physical block, possible left atrial enlargement.
V/Q-no PE
Echo 09/22/2024-normal LV size and function. Mild concentric LVH. EF 60 to 65%. Normal diastolic function. Trace MR, mild TR, pulmonary artery pressure 28 mmHg cannot exclude PFO. Prior study from 2019 also suggested a possible PFO.
CVS: S1-S2 normal, ssm at apex
Chest: CTA B/L
Abdomen: Soft, NT / Bowel sounds present
Extremities: No edema
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
# Chest pain - see below
Trop Trending down
VQ scan negative
Pain is mostly epigastric in nature
# Elevated troponin likely nonischemic myocardial injury-echo without any wall motion abnormalities
# Pancreatic and hepatic masses along with 4 mm pulmonary nodule
Transaminitis
Vague abdominal discomfort-likely secondary to malignancy
Check CA 19-9
Liver mass biopsy ordered by interventional radiology. Heparin drip needs to be held according to IR policy and restarted when okay with IR.
Oncology consulted and following
# Left peroneal DVT-now off of Eliquis as outpatient. Patient may need port to be placed as outpatient for discussion with oncology. Therefore best option would be for her to go on Eliquis she is a little reluctant. I will also place Lovenox as
per discussion with oncology today.
Coumadin may not be the best choice for this patient.
She is hesitant to take Eliquis or Xarelto because she says it has lactose and she is lactose intolerant.
# Hypertension-continue lisinopril
# Hyperlipidemia-continue statin
# Migraines
# GERD-continue PPI
# Chronic Vertigo-on as needed meclizine
# Diverticulosis
# IBS on as needed dicyclomine and Imodium
Colonoscopy 01/20/2020-normal mucosa in the entire examined colon. Tortuous colon. Diverticulosis. Internal hemorrhoids.
# Full code
Discussed with hematology oncology
Anticipated Discharge: Within 24 hours
Subjective/Interval History
-
Date of Service: September 23, 2024
Objective Data
-
Labs:
Laboratory Results
09/23/24 09/23/24
02:04 08:28
WBC 12.1 H
Hgb 11.6 L
Hct 34.1 L
Plt Count 216 D
PT Pending
INR Pending
APTT 108.5 H
Sodium 137
Potassium 4.1
Chloride 102
Carbon Dioxide 25
BUN 8
Creatinine 0.5 L
Glucose 121 H
Calcium 9.0
Total Bilirubin 0.6
AST 88 H
ALT 40 H
Alkaline Phosphatase 623 H
Vital Signs:
Vital Signs
Temp Pulse Resp BP Pulse Ox
98.8 F 86 18 116/106 97
09/23/24 02:01 09/23/24 07:49 09/23/24 02:01 09/23/24 07:49 09/23/24 02:01
I&O
09/22/24 09/23/24 09/24/24
06:59 06:59 06:59
Intake Total 600 / 600 480 / 480
Output Total 1225 / 1225
Balance -625 / -625 480 / 480
[2024-09-23 11:12] LABS: INR 0.92; PT 12.7 Sec (11.4-14.6)
--- NOTE | 2024-09-23 11:15 | PTCARENOTE ---
Heparin drip stopped at approx. 1055 when IR called for her. Pt sent to IR on stretcher
--- NOTE | 2024-09-23 11:26 | W.PN.UPDATE ---
Update Note
Progress Note Update
Patient off the floor, likely for biopsy.
Case d/w Dr. Galdamez - patient reports intolerance to DOACs due to lactose in pills.
She is at high risk for thrombotic complications in the setting of presumed metastatic pancreas cancer, DVT and PFO.
If unable to tolerate DOAC, would favor Lovenox 1mg/kg bid instead. Coumadin not ideal with liver mets, interactions with chemo, eventual likely need for port placement, etc.
[2024-09-23 11:34] LABS: APTT 41.1 Sec (23.4-35.0)
--- NOTE | 2024-09-23 12:31 | CM ---
Chart reviewed. Patient is independent of ADL, lives in a 2 STH, 1st floor set up, in a [facility] at [facility], 1 [facility]EV[place], 0 DME. Patient would like to receive Dietary Counseling on Foods to avoid with Coumadin. I did provide the
patient with a handout, but a dietary consult should be done before discharge. Plan is for the patient to return home. CM to follow
--- NOTE | 2024-09-23 12:34 | W.PN.UPDATE ---
Update Note
Progress Note Update
US guided liver biopsy performed, patient tolerated well.
Bedrest for 2 hours. OK to resume heparin around 3 pm.
--- NOTE | 2024-09-23 13:07 | PTCARENOTE ---
Rec'd Pt s/p liver biopsy in IR, A,A+Ox3, denies pain. R upper abd bandaid D+I. Pt to be on bedrest x 2hrs. Will resume heparin drip at [address] Guardado.
--- NOTE | 2024-09-23 13:57 | CM ---
Addendum entered by Janet Quevedo RN 09/23/24 15:01:
Reviewed pricing with the patient and what Lovenox was being used for. Patient would like VN to be set up. Patient hasn't been driving because of feeling ill and works. Referral placed to [facility]. Plan is for the patient to return home
with [facility].
Original Note:
Pricing on Enoxaprin 60 mg BID is $159.11 for a 30 day supply and $44.65 for a 2 week supply. Dosage comes in 40mg, 60mg, 80mg or 120mg. Lovenox is not covered. Dr Galdamez notified
[2024-09-23] MEDS: HEPARIN 25000 UNITS/250 ML IV (14:56)
[2024-09-23] MEDS: LOW STRENGTH ASPIRIN 81 MG PO (17:20)
[2024-09-23] MEDS: MIRALAX 17 GRAMS PO (21:00)
[2024-09-23] MEDS: CRESTOR 10 MG PO (21:00)
[2024-09-23 21:16] LABS: APTT 95.7 Sec (23.4-35.0)
--- NOTE | 2024-09-23 21:16 | PTCARENOTE ---
Received patient at change of shift. Awake, alert, and oriented sitting in bed. ([place]) bedside. BP 133/80, NSR 70s, 97% on room air. Heparin drip running @ 11.5 mL/hr in right forearm. Patient denies chest pain. Discussed plan of care.
Patient verbalized understanding. Call laboy within reach.
[2024-09-24 03:20] VITALS: BP 140/62
[2024-09-24 04:01] LABS: APTT 92.6 Sec (23.4-35.0)
[2024-09-24 04:03] LABS: Hematocrit 35.6 % (37.0-47.0); Hemoglobin 11.8 g/dL (12.0-16.0); Mean Corp Hgb Conc. 33.1 g/dL (33.0-37.0); Mean Corpuscular Hgb 29.2 pg (27.0-31.0); Mean Corpuscular Volume 88.1 fL (81.0-99.0); Mean Platelet Volume 10.1 fL (7.4-10.4); Platelet Count 265 10^3/uL (130-400); Red Blood Cell Count 4.04 10^6/uL (4.20-5.40); Red Cell Dist. Width 13.1 % (11.5-14.5); White Blood Cell Count 10.6 10^3/uL (4.8-10.8)
[2024-09-24 04:07] LABS: ALT (SGPT) 48 U/L (0-35); AST (SGOT) 109 U/L (14-36); Albumin 3.5 g/dl (3.5-5.0); Alkaline Phosphatase 740 U/L (38-126); Blood Urea Nitrogen 8 mg/dl (7-17); Calcium 9.5 mg/dl (8.4-10.2); Carbon Dioxide 27 mmol/L (22-30); Chloride 103 mmol/L (98-107); Estimated Creatinine Clearance 68 ml/min; Glucose 118 mg/dl (70-99); Potassium 4.2 mmol/L (3.5-5.1); Sodium 137 mmol/L (135-145); Total Bilirubin 0.6 mg/dl (0.2-1.3); Total Protein 6.1 g/dl (6.3-8.2); eGFR > 60.00
[2024-09-24 06:16] LABS: CA 19-9 175 U/mL (<=35)
--- NOTE | 2024-09-24 07:44 | W.PN.HOSP.TC ---
Today's Communication/Plan
-
OK for discharge today
Assessment / Plan
Assessment / Plan
74-year-old female presented with chest pain and poorly controlled blood pressure. Patient was diagnosed DVT 4 weeks prior to admission and was started on Eliquis. She had some abdominal discomfort and dyspepsia and Eliquis was discontinued.
MRI of the abdomen and pelvis-3.1 and 1.5 cm mass in the body of the pancreas highly suspicious for malignancy such as pancreatic adenocarcinoma. Innumerable hepatic metastasis. Portacaval lymphadenopathy concerning for mariam metastasis.
Head CT-no acute changes
EKG-normal sinus rhythm, incomplete right bundle branch block, left anterior physical block, possible left atrial enlargement.
V/Q-no PE
Echo 09/22/2024-normal LV size and function. Mild concentric LVH. EF 60 to 65%. Normal diastolic function. Trace MR, mild TR, pulmonary artery pressure 28 mmHg cannot exclude PFO. Prior study from 2019 also suggested a possible PFO.
CVS: S1-S2 normal, ssm at apex
Chest: CTA B/L
Abdomen: Soft, NT / Bowel sounds present
Extremities: No edema
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
# Chest pain - see below
Trop peaking at 0.210
VQ scan negative
Pain is mostly epigastric in nature
TTE: Normal biventricular size and systolic function without regional wall motion
abnormality.
# Elevated troponin likely nonischemic myocardial injury-echo without any wall motion abnormalities
# Pancreatic and hepatic masses along with 4 mm pulmonary nodule
Transaminitis
Vague abdominal discomfort-likely secondary to malignancy
CA 19-9 elevated 175
s/p liver mass biopsy on 09/23
Oncology consulted and following
# Left peroneal DVT- - does not tolerate Eliquis - OK to discharge on Lovenox
# Hypertension-continue lisinopril
# Hyperlipidemia-continue statin
# Migraines
# GERD-continue PPI
# Chronic Vertigo-on as needed meclizine
# Diverticulosis
# IBS on as needed dicyclomine and Imodium
Colonoscopy 01/20/2020-normal mucosa in the entire examined colon. Tortuous colon. Diverticulosis. Internal hemorrhoids.
# Full code
Discussed with hematology oncology
Anticipated Discharge: Today
Subjective/Interval History
-
Date of Service: September 24, 2024
feeling well today
some incisional pain post biopsy manageable
wants to go home
Objective Data
-
Labs:
Laboratory Results
09/23/24 09/23/24 09/24/24
10:50 20:49 03:29
WBC 10.6
Hgb 11.8 L
Hct 35.6 L
Plt Count 265 D
APTT Cancelled 95.7 H 92.6 H
Sodium 137
Potassium 4.2
Chloride 103
Carbon Dioxide 27
BUN 8
Creatinine 0.5 L
Glucose 118 H
Calcium 9.5
Total Bilirubin 0.6
AST 109 H
ALT 48 H
Alkaline Phosphatase 740 H
Vital Signs:
Vital Signs
Temp Pulse Resp BP Pulse Ox
98.8 F 71 20 140/62 97
09/24/24 03:23 09/24/24 06:00 09/24/24 03:23 09/24/24 03:20 09/24/24 03:23
I&O
09/23/24 09/24/24 09/25/24
06:59 06:59 06:59
Intake Total 480 / 480
Balance 480 / 480
Review of Systems
-
History Source: Patient
All other systems: Reviewed and negative
Physical Exam
-
General: No Apparent Distress
HEENT: PERRLA
Respiratory: Clear to Auscultation; Negative Wheezes
Cardiac: Regular Rhythm and S1/S2
GI: Soft and Nontender
Musculoskeletal: No Edema
Skin: Warm and Dry; Negative Rash
Neuro: AO x 3
Psych: Calm
Data Reviewed
-
Diagnostic Radiology: Report Reviewed by me
Labs: Labs Reviewed by me
[2024-09-24 08:10] VITALS: BP 146/76
--- NOTE | 2024-09-24 08:14 | W.DS.TRANS ---
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
-
Discharge Instructions:
Discharge Diagnosis/Procedures Pancreatic Mass, DVT
Diet Regular
Activity As tolerated
Driving Restrictions As prior to admission
Bathing Restrictions None
Instructions:
Stand-Alone Forms:
Changes to Home Medications: Yes
Discharge Medications:
DC Medications w/original date entered in [employer]
lisinopril 5 mg tablet 5 mg PO DAILY Blood pressure 11/23/18
ascorbic acid (vitamin C) 500 mg tablet (Vitamin C) 500 mg PO TUSA supplement 04/28/21
cholecalciferol (vitamin D3) 25 mcg (1,000 unit) tablet 1,000 units PO DAILY Supplement 04/28/21
multivitamin with brp-PX-curbbo 400 mcg-120 mg tablet (One Daily Women 50 Plus) 1 ea PO QPM Supplement 04/28/21
rosuvastatin 10 mg tablet 10 mg PO HS High Cholesterol 04/28/21
calcium carbonate (Tums) 200 mg PO DAILYPRN PRN sour stomach 07/23/23
dicyclomine 10 mg capsule 10 mg PO DAILYPRN PRN intestinal spasm 07/23/23
fexofenadine 60 mg tablet 60 mg PO DAILYPRN PRN allergies 07/23/23
loperamide 2 mg capsule 2 mg PO DAILYPRN PRN diarrhea 07/23/23
meclizine 25 mg tablet 25 mg PO DAILYPRN PRN vertigo 07/23/23
peg 400-propylene glycol (PF) 0.4 %-0.3 % eye drops in a dropperette (Systane (PF)) 1 drp BOTH EYES TID dry eye 07/23/23
polyethylene glycol 3350 17 gram oral powder packet (Miralax) 17 g PO DIRECTED PRN constipation 07/23/23
saliva substitute combo no.9 (Biotene Dry Mouth Oral Rinse mouthwash) 15 ml mucous membrane DAILYPRN PRN dry mouth 07/23/23
triamcinolone acetonide 55 mcg nasal spray aerosol (Nasacort) 1 spray intranasal DAILY Allergies 07/23/23
omeprazole 20 mg capsule,delayed release 20 mg PO DAILY Gastrointestinal Issue 09/20/24
enoxaparin 60 mg/0.6 mL subcutaneous syringe 60 mg (0.6 mL) SC Q12H #36 mL 09/24/24
Home Medication Changes
addition of Lovenox
Pending Results: Yes
Additional Pending Results:
liver biopsy results
--- NOTE | 2024-09-24 08:17 | W.PN.ONC2 ---
Today's Communication / Plan
-
Agree with D/C with outpt F/U.
Impression
Impression
Incidental hepatic metastases suspect pancreatic masses as site of origin
unprovoked left lower extremity DVT
Plan
Plan
S/P liver biopsy 09/23 to then f/u as outpt with treatment plan.
CA 19-9 elevated 175
Agree with Lovenox as A/C as she has GI discomfort from Eliquis due to lactose intolerance and in pills
Subjective/Objective
Chief Complaint
ACS Heme Onc
Subjective
S/P Liver Biopsy. Many questions. No other c/o.
Vital Signs:
Vital Signs
Temp Pulse Resp BP Pulse Ox
98 F 71 20 140/62 98
09/24/24 08:08 09/24/24 06:00 09/24/24 08:08 09/24/24 03:20 09/24/24 08:08
Lab Results:
Laboratory Data
WBC 10.6 10^3/uL (4.8-10.8) 09/24/24 03:29
Hgb 11.8 g/dL (12.0-16.0) L 09/24/24 03:29
Plt Count 265 10^3/uL (130-400) D 09/24/24 03:29
PT 12.7 Sec (11.4-14.6) 09/23/24 10:55
INR 0.92 09/23/24 10:55
APTT 92.6 Sec (23.4-35.0) H 09/24/24 03:29
eGFR > 60.00 09/24/24 03:29
Physical Exam
HEENT: No Jaundice
Cardiology: S1 and S2
Pulmonary: Clear
GI: Soft
[2024-09-24] MEDS: ZESTRIL 5 MG PO (08:23)
[2024-09-24] MEDS: LOVENOX 60 MG SC (09:24)
--- NOTE | 2024-09-24 09:25 | CM ---
Addendum entered by Ca Turpin 09/24/24 10:46:
Telephone call to [facility] in [place] to see if generic Lovenox in stock. [facility] [place] [facility] not [facility] in [facility]. Telephone call to [facility] in [place] to see if they have generic Lovenox in stock. They have it in stock and will fill the
script.
Addendum entered by Ca Turpin 09/24/24 10:45:
Telephone call to
Original Note:
Reviewed chart. Met with Mrs. Chan to review discharge plans. She states she is feeling better and maybe able to go home soon. She states she is agreeable to [facility]NA Services with [facility]. Telephone call to [facility] to update
them on discharge date. Prior to admission she resides with her spouse in a two story home in a long-term [facility]. She has one step to enter. Prior to admission she was independent with ambulation and adls. She has a grabber at
home and no other DME in the home. She has a prescription plan with [employer] and uses [facility]. Medical work-up in progress. The discharge plan is to return home with her spouse and [facility] when medically stable.
--- NOTE | 2024-09-24 09:41 | PTCARENOTE ---
Reviewed Lovenox injection technique with Pt. She then injected herself with supervision. She did very well! Instructions were also printed from [facility] Pt education and given to Pt.
[2024-09-24] MEDS: TYLENOL 650 MG PO (09:56)
[2024-09-24 11:41] VITALS: BP 132/99
--- NOTE | 2024-09-24 11:56 | PTCARENOTE ---
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 BP 151/91. Med with NTG sl 1 tab. CP down to a 2/10 when transported to lab. BP 147/81. Heparin drip stopped just prior to leaving.
--- NOTE | 2024-09-24 14:09 | W.DCSUMMARY ---
Discharge Summary
Discharge Data
Date of Admission: 09/20/24
Date of Discharge: 09/24/24
-
Pending Results: Yes
Additional Pending Results:
liver biopsy results
Hospital Course
Discharging Physician : Dr. Patricia Welch
Disposition : Home
Primary care physician : Dr. Radu Marinelli
Principal Discharge diagnosis : Pancreatic and Hepatic masses, concern for metastatic pancreatic cancer
Hospital Course :
Ms. Flaca Chan is a 74 yo woman with hx migraine headaches, vertigo, hypertension and recent distal DVT presenting to the emergency department with a 1 day history of substernal chest pain that radiates across the chest.
On arrival in the emergency department she was afebrile, blood pressures were in the 140s to 160s systolic. O2 Sat 90% on room air. Chest x-ray shows no acute infiltrates. ECG shows a rate of 79 and T wave inversions in leads III and aVF with a
left anterior fascicular block which is unchanged from recent. Initial troponin was elevated at 0.04 and repeat Troponins tommy to 0.07. WBC 13. Electrolytes that BUN/creatinine were unremarkable. Labs were also notable for a elevated alk phos of
700 with slight elevations in ALT and AST.
Patient was admitted to medicine. Transaminitis worked up with abdominal US which showed hepatic and possible pancreatic masses. This was followed up with Abdomen MRI suspicious for metastatic pancreatic cancer. Oncology was consulted. Patient
underwent IR-guided liver mass biopsy while in the hospital with results pending at time of discharge. She will follow up closely with Dr. Hoang as outpatient.
Patient reports not tolerating Eliquis as outpatient, possibly due to lactose intolerance. She is transitioned to Lovenox 60mg BID (dosing confirmed with pharmacy). She is given one month's supply and this is to be refilled as outpatient.
Regarding chest pain work-up, her Troponin peaked at 0.210 and on further discussion reported more as epigastric associated with nausea, It was non-exertional. TTE with normal EF and no wall motion abnormality. Resolved prior to discharge. V/Q
scan with low probability PE. She denies chest pain prior to discharge and stated abdominal discomfort had improved.
Time spent on discharge was 40 minutes.
Important imaging findings :
CXR 09/20/24
IMPRESSION:
No acute cardiopulmonary process.
RUQ US 09/20/24
IMPRESSION: No evidence of cholelithiasis, gallbladder wall thickening or biliary tract dilatation.
Findings suspicious for hepatic masses and possible pancreatic masses. One differential diagnostic possibility would be primary pancreatic carcinoma with hepatic metastasis. Recommend additional imaging with MRI for more complete evaluation. If MRI
cannot be obtained, CT would be suggested.
Chest CT 09/20/24
IMPRESSION:
1. Hypoattenuating hepatic masses concerning for metastatic disease.
2. 4 mm pulmonary nodule in the superior segment of the right lower lobe.
Head CT 09/20/24
IMPRESSION:
No acute intracranial abnormality.
Abdomen MRI 09/21/24
IMPRESSION:
1. 3.1 x 1.5 cm mass in the body of the pancreas is highly suspicious for a malignant mass such as pancreatic adenocarcinoma.
2. Innumerable hepatic metastases.
3. Portacaval lymphadenopathy concerning for mariam metastasis.
V/Q Scan 09/22/24
IMPRESSION: Matched left sided findings consistent with a low probability VQ scan.
Procedure findings :
IMPRESSION: Successful ultrasound-guided hepatic mass biopsy.
Discharge Plan
-
Patient Disposition: Home (Routine Discharge)
Discharge Diagnosis/Procedures: Pancreatic Mass, DVT
Condition: Fair
Diet: Regular
Activity: As tolerated
Driving Restrictions: As prior to admission
Bathing Restrictions: None
Referrals:
[facility] [Outside]
Raud Marinelli DO [Family Provider] - in less than 1 week
Kenneth Hoang MD [Active] - in less than 1 week
Prescriptions:
New
enoxaparin 60 mg/0.6 mL Syringe
60 mg SC Q12H Qty: 36 0RF
Continued
lisinopril 5 MG tablet
5 mg PO DAILY
ascorbic acid (vitamin C) [Vitamin C] 500 MG tablet
500 mg PO TUSA
rosuvastatin 10 MG tablet
10 mg PO HS
cholecalciferol (vitamin D3) 1,000 UNITS tablet
1,000 units PO DAILY
One Daily Women 50 Plus 1 EACH tablet
1 ea PO QPM
fexofenadine 60 mg Tablet
60 mg PO DAILYPRN PRN (Reason: allergies)
loperamide 2 mg Capsule
2 mg PO DAILYPRN PRN (Reason: diarrhea)
polyethylene glycol 3350 [Miralax] 17 gram Powder In Packet
17 g PO DIRECTED PRN (Reason: constipation )
meclizine 25 mg Tablet
25 mg PO DAILYPRN PRN (Reason: vertigo)
triamcinolone acetonide [Nasacort] 55 mcg Aerosol,[place]
1 spray INTRANASAL DAILY
Rx Instructions:
administer into each nostril
calcium carbonate [Tums] 200 mg calcium (500 mg) Tablet,Chewable
200 mg PO DAILYPRN PRN (Reason: sour stomach)
dicyclomine 10 mg Capsule
10 mg PO DAILYPRN PRN (Reason: intestinal spasm)
Systane (PF) 0.4-0.3 % Dropperette
1 drp BOTH EYES TID
Biotene Dry Mouth Oral Rinse Mouthwash
15 ml MUCOUS MEMBRANE DAILYPRN PRN (Reason: dry mouth)
omeprazole 20 mg Capsule,Delayed Release(Dr/Ec)
20 mg PO DAILY
Discharge Orders:
Discharge Patient (As Directed); Ordered 09/24/24
Ordered By: Patricia Welch
Care Plan Goals
Care Plan Goals:
Problem: Readiness for enhanced knowledge related to diagnosis and treatment plan
Goal: Understand your diagnosis and treatment plan needs, including medications if applicable.
Instructions: Know your diagnosis, underlying causes and treatment plan options, including medications if applicable. Consult with your health care team to learn about your diagnosis and treatment plan, including medications if applicable.
Discharge Date and Time
Discharge Date/Time: 09/24/24 14:01
Print Language: [place]
== END 2024-09-24 14:01 | disposition home health service (06) | DRG 436 ==
LOC: IVU 06:41
PROVIDERS: Hospitalist; Internal Medicine; Internal Medicine Cardiovascular Disease; Nurse Practitioner Family; Radiology Vascular & Interventional Radiology; ADMITTING PHYSICIAN Internal Medicine; ATTENDING PHYSICIAN Student in an Organized Health Care Education/Training Program; CONSULT PHYSICIAN Internal Medicine Hematology & Oncology; EMERGENCY PHYSICIAN Emergency Medicine; FAMILY PHYSICIAN Internal Medicine
PROC: 0FB03ZX Excision of Liver, Percutaneous Approach, Diagnostic (ICD-10-PCS; 2024-09-23)
DX: C25.9 Malignant neoplasm of pancreas, unspecified (principal); C78.7 Secondary malignant neoplasm of liver and intrahepatic bile duct; Q21.12 Patent foramen ovale; I82.552 Chronic embolism and thrombosis of left peroneal vein; I5A Non-ischemic myocardial injury (non-traumatic); I10 Essential (primary) hypertension; G43.909 Migraine, unspecified, not intractable, without status migrainosus; E78.00 Pure hypercholesterolemia, unspecified; K21.9 Gastro-esophageal reflux disease without esophagitis; K58.9 Irritable bowel syndrome, unspecified; R91.1 Solitary pulmonary nodule; Z79.01 Long term (current) use of anticoagulants; Z79.899 Other long term (current) drug therapy; Z87.892 Personal history of anaphylaxis; Z88.0 Allergy status to penicillin; Z88.2 Allergy status to sulfonamides; Z88.5 Allergy status to narcotic agent; Z91.040 Latex allergy status; Z91.041 Radiographic dye allergy status
CPT/HCPCS: 88307; 47000; 70450; 71046; 71250; 72197; 74183; 76700; 76942; 78582; 80053; 83735; 83880; 84484; 85025; 85027; 85379; 85610; 85730; 86301; 88333; 88341; 88342; 93005; 93306; 96374; 96375; 99152; 99153; 99285; A9540; A9567; A9575

== ENCOUNTER → 2024-10-01 15:48 | Outpatient (REF) | payer MEDICARE, OTHER, SELFPAY ==
[2024-10-01 17:11] LABS: % Basophils 1.3 % (0-2); % Eosinophils 6.2 % (0-6); % Immature Granulocytes 0.5 % (0-0.5); % Lymphocytes 14.6 % (20.5-51.1); % Monocytes 9.8 % (1.7-9.3); % Neutrophils 67.6 % (42.2-75.2); Absolute Basophils 0.1 10^3/uL (0-0.2); Absolute Eosinophils 0.7 10^3/uL (0-0.7); Absolute Immature Granulocytes 0.1 10^3/uL (0-0.05); Absolute Lymphocytes 1.6 10^3/uL (1.2-3.4); Absolute Monocytes 1.1 10^3/uL (0.1-0.6); Absolute Neutrophils 7.5 10^3/uL (1.4-6.5); Hemoglobin 11.9 g/dL (12.0-16.0); Mean Corp Hgb Conc. 33.1 g/dL (33.0-37.0); Mean Corpuscular Hgb 29.5 pg (27.0-31.0); Mean Corpuscular Volume 89.3 fL (81.0-99.0); Mean Platelet Volume 11.2 fL (7.4-10.4); Nucleated Red Blood Cells % 0 %; Platelet Count 402 10^3/uL (130-400); Red Blood Cell Count 4.03 10^6/uL (4.20-5.40); Red Cell Dist. Width 13.1 % (11.5-14.5); White Blood Cell Count 11.1 10^3/uL (4.8-10.8)
== END ==
LOC: CLAB 15:48
PROVIDERS: ATTENDING PHYSICIAN Internal Medicine Hematology & Oncology; FAMILY PHYSICIAN Internal Medicine
DX: D37.8 Neoplasm of uncertain behavior of other specified digestive organs (principal); I82.402 Acute embolism and thrombosis of unspecified deep veins of left lower extremity
CPT/HCPCS: 36415; 85025

== ENCOUNTER 2024-11-05 03:32 | Emergency (ER) | payer MEDICARE, OTHER, SELFPAY ==
[2024-11-05] VITALS (7 sets, daily range): BP systolic 128–156; BP diastolic 70–82; BMI 26.4
--- NOTE | 2024-11-05 04:52 | ED.GENMED ---
History of Present Illness
<Ashleigh Mcmanus DO - Last Filed: 11/05/24 06:23>
General
Chief Complaint: Urinary Symptoms
Source: patient, spouse and previous hospital records (Recent hospitalization September 20 to September 24 for evaluation of upper abdominal pain and chest pain. Found to have pancreatic mass with mets to the liver)
Exam Limitations: none
Time Seen by Provider: 11/05/24 04:20
Nursing documentation reviewed up to this point in time: agreed with
History of Present Illness
History of Present Illness:
This is a 74-year-old woman who was hospitalized here September 20 to September 24 with complaints of chest pain. During that hospitalization she was found to have a pancreatic mass as well as liver masses, MRI suspicious for pancreatic cancer with
hepatic mets. She underwent biopsy during that hospitalization which was positive for pancreatic CA. She has since followed up with Dr. Hoang and she has elected to forego treatment of her pancreatic cancer, elects to initiate palliative care.
She has been following with route sales specialist. She does note some generalized upper abdominal pain, bilateral flank pain and has been taking Tylenol 3 times daily for the pain. She has been prescribed Tylenol No. 2, picked it up yesterday
but has not taken this as yet.
She admits to mildly decreased appetite but has been eating. She has been moving her bowels normally. She has been attempting to drink plenty of fluids. She is concerned with 2-day history of decreased urine output as well as mild dysuria. She
does have a prior history of UTIs and is unsure if current symptoms feel similar to previous UTI. She denies abdominal bloating nor fullness. She has not had a fever nor chills. No chest pain or cough nor shortness of breath.
In August of this year she was noted to have DVT, started on Eliquis but was intolerant to Eliquis, questionably due to history of lactose intolerance. Thus Eliquis has been discontinued and transition to twice daily Lovenox.
She has had no further leg pain or swelling.
Past History
<Ashleigh Mcmanus DO - Last Filed: 11/05/24 06:23>
Past History
ED Past Medical History: Cancer (Pancreatic cancer with hepatic metastasis-diagnosed September 2024. Patient elects palliative care), HTN, Hypercholesterolemia, Other (Patent foramen ovale; DVT August 2024-maintained on Lovenox; intolerant to
Eliquis) and Other (Migraine headaches; hard of hearing-wears hearing aids bilaterally)
ED Past Surgical History: Orthopedic
Social History
Tobacco: Non-smoker
Alcohol: None
Drug: None
Personal:
Living: with family
Employment: Retired
Family History
Family History: Other (Noncontributory)
Phy Exam
<Ashleigh Mcmanus DO - Last Filed: 11/05/24 06:23>
Physical Exam
Physical Exam:
GENERAL: 74-year-old woman appears her stated age, bright and alert, pleasant, easily communicative and appears in no acute distress. She is moderately hard of hearing. is accompanying.
EYE: pupils equal and reactive. Moderately icteric.
NECK: Supple, nontender, no meningismus, no significant adenopathy.
ENT: posterior pharynx is clear, oral mucosa is moist. No rhinorrhea.
CARDIAC: Regular rate and rhythm. no murmur.
LUNGS: Clear breath sounds bilaterally, no acute respiratory distress, no wheezes/rales/rhonchi
ABDOMEN: Soft, nondistended, mild tenderness with deep palpation only to the epigastric and right upper quadrant with mild palpable hepatomegaly. There is no ascites/no fluid wave, no r/g, no cvat. normoactive BS. Scattered superficial ecchymotic
patches across the lower abdomen.
NEUROLOGICAL: Alert and oriented x3, no focal neuro deficits. Moderately hard of hearing. Gait is steady.
SKIN: Warm and dry, moderate jaundice, skin intact. No rash.
MUSCULOSKELETAL: No C/C/E. peripheral pulses are full and equal b/l. No palpable tenderness.
PSYCH: Normal and appropriate interaction.
Course
<Ashleigh Mcmanus, DO - Last Filed: 11/05/24 06:23>
Orders/Labs/Results
Orders:
Orders
11/05/24 05:56
Urinalysis Reflex To Culture Urgent
Date Specimen was Collected: 11/05/24
Time Specimen was Collected: 05:54
Urine Microscopic Reflex Cult Urgent
Urine Culture Urgent
RODY Source: U
Specimen Description:
Date Specimen was Collected: 11/05/24
Time Specimen was Collected: 05:54
11/05/24 07:27
Acetaminophen [Tylenol] 1,000 mg PO NOW STA
11/05/24 09:43
Fosfomycin [Monurol] 3 gm PO ONCE ONE
11/05/24 09:52
Ciprofloxacin HCl [Cipro] 1,000 mg PO ONCE ONE
Abnormal Lab Results
11/05/24
05:56
Urine Ketones Trace A
(Negative)
Ur Occult Blood Reflex 1+ A
(Negative)
Urine Nitrite (Reflex) Positive A
(Negative)
Urine Bilirubin 3+ A
(Negative)
Urine Urobilinogen 4+ A
(Neg - 1+)
Leukocyte Esterase Rfl 1+ A
(Negative)
Urine RBC 3-6 A /HPF
(0-2)
Urine Bacteria (Reflex) Few A
(Negative)
Vital Signs
Initial and Last Documented VS:
Initial Vital Signs
Temp Pulse Resp BP Pulse Ox
36.5 C 102 20 132/74 97
11/05/24 03:35 11/05/24 03:35 11/05/24 03:35 11/05/24 03:35 11/05/24 03:35
Last Documented Vital Signs
Temp Pulse Resp BP Pulse Ox
36.9 C 84 16 156/80 97
11/05/24 10:19 11/05/24 10:19 11/05/24 10:19 11/05/24 10:19 11/05/24 10:19
<Emiliano Byers MD - Last Filed: 11/07/24 20:40>
Orders/Labs/Results
Orders:
Orders
11/05/24 05:56
Urinalysis Reflex To Culture Urgent
Date Specimen was Collected: 11/05/24
Time Specimen was Collected: 05:54
Urine Microscopic Reflex Cult Urgent
Urine Culture Urgent
RODY Source: U
Specimen Description:
Date Specimen was Collected: 11/05/24
Time Specimen was Collected: 05:54
11/05/24 07:27
Acetaminophen [Tylenol] 1,000 mg PO NOW STA
11/05/24 09:43
Fosfomycin [Monurol] 3 gm PO ONCE ONE
11/05/24 09:52
Ciprofloxacin HCl [Cipro] 1,000 mg PO ONCE ONE
Abnormal Lab Results
11/05/24
05:56
Urine Ketones Trace A
(Negative)
Ur Occult Blood Reflex 1+ A
(Negative)
Urine Nitrite (Reflex) Positive A
(Negative)
Urine Bilirubin 3+ A
(Negative)
Urine Urobilinogen 4+ A
(Neg - 1+)
Leukocyte Esterase Rfl 1+ A
(Negative)
Urine RBC 3-6 A /HPF
(0-2)
Urine Bacteria (Reflex) Few A
(Negative)
Vital Signs
Initial and Last Documented VS:
Initial Vital Signs
Temp Pulse Resp BP Pulse Ox
36.5 C 102 20 132/74 97
11/05/24 03:35 11/05/24 03:35 11/05/24 03:35 11/05/24 03:35 11/05/24 03:35
Last Documented Vital Signs
Temp Pulse Resp BP Pulse Ox
36.9 C 84 16 156/80 97
11/05/24 10:19 11/05/24 10:19 11/05/24 10:19 11/05/24 10:19 11/05/24 10:19
<Ashleigh Mcmanus DO - Last Filed: 11/05/24 06:23>
MDM/Problems Addressed
Differential Diagnosis Includes:
Patient with known pancreatic cancer with liver metastasis. Has elected palliative care.
She presents with decreased urine output x 2 days, mild dysuria.
Concern for UTI, other consideration is urinary obstruction, kidney stone.
Concern for dehydration however patient has been drinking fluids well and no evidence of ascites on exam and she denies abdominal fullness or increased abdominal girth.
Bedside bladder scan reveals no urine in the bladder.
Patient is moderately jaundiced, otherwise well in appearance. Appears euvolemic. Afebrile.
Will encourage oral fluids and will check urinalysis.
Will hold off on laboratory studies and imaging at this point.
Chronic conditions affecting care: Cancer (Pancreatic cancer with liver metastasis)
<Emiliano Byers MD - Last Filed: 11/07/24 20:40>
*Critical Care Note
Total Time (30-74mins, 75-104mins- exclusive of procedures): Not Applicable
<Emiliano Byers MD - Last Filed: 11/07/24 20:40>
Update Note
Update Note:
UPDATE (Emiliano Byers MD)
I have seen and evaluated the patient after signout and reviewed all labs and imaging.
Focused HPI: 74-year-old female presents with urinary symptoms similar to prior UTIs. No systemic symptoms.
Physical exam: Awake alert no distress. Tachycardia has resolved. No fever.
Medical Decision Making: Patient presents with urinary symptoms. Her urinalysis is positive for infection with positive nitrites, bacteria, pyuria�there are squamous cells to suggest at least some degree of contamination but with these findings in
the setting of symptoms we will treat for UTI. Originally was planned to treat with fosfomycin but patient says that she has tolerated ciprofloxacin well in the past and prefers to be treated with this regimen. She was given 500 mg dose here and
an additional 500 mg dose to take this evening (her pharmacy is closed for the holiday). Given prescription. Follow-up with PCP.
ED Attending Note
<Ashleigh Mcmanus, DO - Last Filed: 11/05/24 06:23>
-
Portions of this chart may have been created with voice recognition software.� Occasional wrong word or��sound alike� substitutions may have occurred due to the inherent limitations of voice recognition software.
Discharge Plan
Departure
Patient Disposition: Home (Routine Discharge)
Date of Disposition: 11/05/24
Time of Disposition: 09:44
Patient with high blood pressure during this ER visit?: Yes
Discharge Problem:
UTI (urinary tract infection)
Instructions: Urinary Tract Infection, Adult (DC)
Prescriptions:
New
ciprofloxacin HCl 500 mg tablet
500 mg PO BID Qty: 14 0RF
No Action
lisinopril 5 MG tablet
5 mg PO DAILY
ascorbic acid (vitamin C) [Vitamin C] 500 MG tablet
500 mg PO TUSA
rosuvastatin 10 MG tablet
10 mg PO HS
cholecalciferol (vitamin D3) 1,000 UNITS tablet
1,000 units PO DAILY
One Daily Women 50 Plus 1 EACH tablet
1 ea PO QPM
fexofenadine 60 mg Tablet
60 mg PO DAILYPRN PRN (Reason: allergies)
loperamide 2 mg Capsule
2 mg PO DAILYPRN PRN (Reason: diarrhea)
polyethylene glycol 3350 [Miralax] 17 gram Powder In Packet
17 g PO DIRECTED PRN (Reason: constipation )
meclizine 25 mg Tablet
25 mg PO DAILYPRN PRN (Reason: vertigo)
triamcinolone acetonide [Nasacort] 55 mcg Aerosol,[place]
1 spray INTRANASAL DAILY
Rx Instructions:
administer into each nostril
calcium carbonate [Tums] 200 mg calcium (500 mg) Tablet,Chewable
200 mg PO DAILYPRN PRN (Reason: sour stomach)
dicyclomine 10 mg Capsule
10 mg PO DAILYPRN PRN (Reason: intestinal spasm)
Systane (PF) 0.4-0.3 % Dropperette
1 drp BOTH EYES TID
Biotene Dry Mouth Oral Rinse Mouthwash
15 ml MUCOUS MEMBRANE DAILYPRN PRN (Reason: dry mouth)
omeprazole 20 mg Capsule,Delayed Release(Dr/Ec)
20 mg PO DAILY
enoxaparin 60 mg/0.6 mL Syringe
60 mg SC Q12H Qty: 36 0RF
Referrals:
Radu Marinelli DO [Family Provider] - Follow up in 2-3 days
Interventions
Interventions:
*Risk Screen - Suicide Last Done: 11/05/24 03:32
*General Assessment Last Done: 11/05/24 03:50
*Neglect/Abuse Screening Last Done: 11/05/24 03:32
ED- Fall Risk Assessment Last Done: 11/05/24 06:24
*ED COVID-19 Vaccine History Last Done: 11/05/24 03:50
*Nursing Disposition Last Done: 11/05/24 10:19
ED-Female Genitourinary Assessment Last Done: 11/05/24 03:50
Discharge Date and Time
Discharge Date/Time: 11/05/24 10:10
Print Language: SA[place] TOME[place]
[2024-11-05 06:10] LABS: Urine Albumin Trace (Neg - Trace); Urine Bilirubin 3+ (Negative); Urine Character Clear (Clear); Urine Color Amber; Urine Glucose Negative (Negative); Urine Ketone Trace (Negative); Urine Leukocyte 1+ (Negative); Urine Nitrite Positive (Negative); Urine Occult Blood 1+ (Negative); Urine Specific Gravity 1.015 (<1.030); Urine Urobilinogen 4+ (Neg - 1+)
[2024-11-05] MEDS: TYLENOL 1000 MG PO (07:40)
[2024-11-05 07:48] LABS: Urine Hyaline Cast 0-2 /LPF (0-2); Urine Mucus Moderate; Urine Squamous Cell 21-25 /LPF (Few)
[2024-11-05 07:50] LABS: Urine Bacteria Few (Negative); Urine Calcium Oxalate Crystals Seen
[2024-11-05] MEDS: CIPRO 1000 MG PO (09:57)
--- NOTE | 2024-11-05 10:15 | EDRN ---
Reviewed discharge instructions with patient. Verbalized understanding. Taken to lobby in wheelchair.
== END 2024-11-05 10:10 | disposition home or self-care (01) ==
LOC: EMR 03:32
PROVIDERS: EMERGENCY PHYSICIAN Emergency Medicine; FAMILY PHYSICIAN Internal Medicine
DX: N39.0 Urinary tract infection, site not specified (principal); R07.89 Other chest pain; C25.9 Malignant neoplasm of pancreas, unspecified; C78.7 Secondary malignant neoplasm of liver and intrahepatic bile duct; E78.00 Pure hypercholesterolemia, unspecified; I10 Essential (primary) hypertension; Z79.01 Long term (current) use of anticoagulants; Z86.718 Personal history of other venous thrombosis and embolism; Z87.440 Personal history of urinary (tract) infections
CPT/HCPCS: 99282; 81003; 81015; 87086

== ENCOUNTER 2024-11-17 20:32 | Inpatient (IN) | payer MEDICARE, OTHER, SELFPAY ==
[2024-11-17 13:56] VITALS: BP 97/61
--- NOTE | 2024-11-17 14:01 | ED.GENMED ---
ED Provider Triage
<Mckinley Hopson Jr., PA-C - Last Filed: 11/17/24 14:02>
-
Patient seen by provider in Triage?: Seen in Triage
Attestation: A medical screening examination has been initiated by a qualified medical provider. Based on the assessment performed at this time, it has been determined that an emergent medical condition may exist and the patient has been informed
that further medical evaluation and possible additional diagnostic testing may be needed.
HPI: 74-year-old female presenting to the emergency department today with concerns of worsening jaundice feeling generally fatigue nausea decreased appetite. Does have known liver pancreatic cancer currently is palliative but is seekingAdditional
assessment to figure out if there is any acute treatments at this time due to recent changes.
GENERAL: Alert , in no apparent distress
EYE: No visual abnormalities.
NECK: Trachea midline
ENT: No visible abnormalities.
LUNGS: No acute respiratory distress
NEUROLOGICAL: Alert and oriented
SKIN: Skin intact. No visible changes.
MUSCULOSKELETAL: Moving extremities normally
PSYCH: Normal and appropriate interaction.
This is a medical evaluation conducted in person to initiate diagnostic evaluation and provide initial therapeutics. Please see further documentation by the treating clinician.
History of Present Illness
<Mckinley Hopson Jr., PA-C - Last Filed: 11/17/24 14:02>
General
Chief Complaint: Weakness
Time Seen by Provider: 11/17/24 16:53
<Garrison Madden DO - Last Filed: 11/17/24 19:15>
General
Source: patient, records and spouse
Exam Limitations: none
Nursing documentation reviewed up to this point in time: agreed with
History of Present Illness
History of Present Illness:
74-year-old female presents emergency department complaining of progression of liver and pancreatic cancer. She was jaundiced and weak, and went to palliative care. They sent her to the emergency department. She states she has been trying to
drink more water lately, and was treated for a UTI.
Past History
<GALE Mao Jr.-Linda - Last Filed: 11/17/24 14:02>
Past History
ED Past Medical History: Cancer (Pancreatic cancer with hepatic metastasis-diagnosed September 2024. Patient elects palliative care), HTN, Hypercholesterolemia, Other (Patent foramen ovale; DVT August 2024-maintained on Lovenox; intolerant to
Eliquis) and Other (Migraine headaches; hard of hearing-wears hearing aids bilaterally)
ED Past Surgical History: Orthopedic
Social History
Tobacco: Non-smoker
Alcohol: None
Drug: None
Personal:
Living: with family
Employment: Retired
Family History
Family History: Other (Noncontributory)
Review of Systems
<Garrison Madden DO - Last Filed: 11/17/24 19:15>
Review of Systems
Allergies reviewed?: Yes
All Other Systems: Not applicable
Constitutional: Reports fatigue
EENT: Reports no symptoms
Respiratory: Reports no symptoms
Cardiac: Reports no symptoms
ABD/GI: Reports no symptoms
: Reports no symptoms
Musculoskeletal: Reports no symptoms
Skin: Reports other (Jaundice)
Neurological: Reports weakness
Endocrine: Reports no symptoms
Hematologic/Lymphatic: Reports no symptoms
Psychiatric: Reports no symptoms
Phy Exam
<Garrison Madden DO - Last Filed: 11/17/24 19:15>
Physical Exam
Physical Exam:
Physical Exam
General: Chronic ill appearance, jaundice
Neck: supple. no meningeal signs. normal posterior pharynx
Heart: s1/s2 regular rate and rhythm, no murmur. equal radial
pulses.
HEENT: Pupils equal round reactive to light, EOMI
Lungs: no acute respiratory distress. clear bilaterally
Abdomen: normal bowel sounds. not tender. no CVAT
Neuro: alert and oriented. no focal neurological deficits cranial nerves II through XII intact
Skin: no rash, jaundice
Psychiatric: well kept. interactive and cooperative
Extremities: mild bilateral tibial edema. no calf tenderness. negative homans. good distal pulses
Course
<Mckinley Hopson Jr., PA-Linda - Last Filed: 11/17/24 14:02>
Orders/Labs/Results
Orders:
Orders
11/17/24 14:00
EKG [Electrocardiogram (*1)] Urgent
Reason for Study: Shortness of Breath
EKG- Treatment ONCE
Chest [CR Chest - 2 Views ] Urgent
Comment:
Reason For Exam: sob
11/17/24 14:15
Complete Blood Count/With Diff Urgent
Comprehensive Metabolic Panel Urgent
Lipase Urgent
Manual Differential Urgent
Serum Osmolality Urgent
Comment: ADD ON
11/17/24 14:18
US Abdomen Complete/Upper Urgent
Comment:
Reason For Exam: upper adb pain
11/17/24 16:36
Osmolality, Random Urine Urgent
Date Specimen was Collected: 11/17/24
Time Specimen was Collected: 16:31
Comment: ADD ON
Urinalysis Reflex To Culture Urgent
Date Specimen was Collected: 11/17/24
Time Specimen was Collected: 16:31
Urine Microscopic Reflex Cult Urgent
Urine Sodium Urgent
Date Specimen was Collected: 11/17/24
Time Specimen was Collected: 16:31
Comment: ADD ON
Urine Culture Urgent
RODY Source: U
Specimen Description:
Date Specimen was Collected: 11/17/24
Time Specimen was Collected: 16:31
11/17/24 17:14
Add On- LAB Urgent
Tests Added?: serum osmolality
Osmolality, Random Urine Urgent
Urine Sodium Urgent
11/17/24 17:21
Add On - Microbiology Urgent
Tests Added?: urine-sodium, Osmolality
Abnormal Lab Results
11/17/24 11/17/24
14:15 16:36
WBC 17.3 H 10^3/uL
(4.8-10.8)
Hct 35.4 L %
(37.0-47.0)
RDW 21.1 H %
(11.5-14.5)
Abs Neuts (Manual) 12.4 H 10^3/uL
(1.4-6.5)
Lymphocytes (Manual) 12 L %
(20-51)
Monocytes (Manual) 10 H %
(2-9)
Sodium 126 L mmol/L
(135-145)
Chloride 91 L mmol/L
(98-107)
Glucose 101 H mg/dl
(70-99)
Total Bilirubin 17.6 H mg/dl
(0.2-1.3)
AST 331 H U/L
(14-36)
ALT 43 H U/L
(0-35)
Alkaline Phosphatase 1379 H U/L
(38-126)
Total Protein 5.7 L g/dl
(6.3-8.2)
Albumin 2.7 L g/dl
(3.5-5.0)
Ur Occult Blood Reflex 2+ A
(Negative)
Urine Nitrite (Reflex) Positive A
(Negative)
Urine Bilirubin 3+ A
(Negative)
Urine Urobilinogen 3+ A
(Neg - 1+)
Leukocyte Esterase Rfl Trace A
(Negative)
Urine Osmolality 298 L mOsm/kg
(300-900)
Urine Sodium 7 L mmol/L
(30-90)
Urine Albumin (Reflex) 1+ A
(Neg - Trace)
11/17/24 14:15
11/17/24 14:15
Vital Signs
Initial and Last Documented VS:
Initial Vital Signs
Temp Pulse Resp BP Pulse Ox
98.0 F 102 18 97/61 97
11/17/24 13:56 11/17/24 13:56 11/17/24 13:56 11/17/24 13:56 11/17/24 13:56
Last Documented Vital Signs
Temp Pulse Resp BP Pulse Ox
98.0 F 94 18 100/56 99
11/17/24 13:56 11/17/24 16:01 11/17/24 16:01 11/17/24 16:01 11/17/24 16:01
<Garrison Madden, DO - Last Filed: 11/17/24 19:15>
Orders/Labs/Results
Orders:
Orders
11/17/24 14:00
EKG [Electrocardiogram (*1)] Urgent
Reason for Study: Shortness of Breath
EKG- Treatment ONCE
Chest [CR Chest - 2 Views ] Urgent
Comment:
Reason For Exam: sob
11/17/24 14:15
Complete Blood Count/With Diff Urgent
Comprehensive Metabolic Panel Urgent
Lipase Urgent
Manual Differential Urgent
Serum Osmolality Urgent
Comment: ADD ON
11/17/24 14:18
US Abdomen Complete/Upper Urgent
Comment:
Reason For Exam: upper adb pain
11/17/24 16:36
Osmolality, Random Urine Urgent
Date Specimen was Collected: 11/17/24
Time Specimen was Collected: 16:31
Comment: ADD ON
Urinalysis Reflex To Culture Urgent
Date Specimen was Collected: 11/17/24
Time Specimen was Collected: 16:31
Urine Microscopic Reflex Cult Urgent
Urine Sodium Urgent
Date Specimen was Collected: 11/17/24
Time Specimen was Collected: 16:31
Comment: ADD ON
Urine Culture Urgent
RODY Source: U
Specimen Description:
Date Specimen was Collected: 11/17/24
Time Specimen was Collected: 16:31
11/17/24 17:14
Add On- LAB Urgent
Tests Added?: serum osmolality
Osmolality, Random Urine Urgent
Urine Sodium Urgent
11/17/24 17:21
Add On - Microbiology Urgent
Tests Added?: urine-sodium, Osmolality
Abnormal Lab Results
11/17/24 11/17/24
14:15 16:36
WBC 17.3 H 10^3/uL
(4.8-10.8)
Hct 35.4 L %
(37.0-47.0)
RDW 21.1 H %
(11.5-14.5)
Abs Neuts (Manual) 12.4 H 10^3/uL
(1.4-6.5)
Lymphocytes (Manual) 12 L %
(20-51)
Monocytes (Manual) 10 H %
(2-9)
Sodium 126 L mmol/L
(135-145)
Chloride 91 L mmol/L
(98-107)
Glucose 101 H mg/dl
(70-99)
Total Bilirubin 17.6 H mg/dl
(0.2-1.3)
AST 331 H U/L
(14-36)
ALT 43 H U/L
(0-35)
Alkaline Phosphatase 1379 H U/L
(38-126)
Total Protein 5.7 L g/dl
(6.3-8.2)
Albumin 2.7 L g/dl
(3.5-5.0)
Ur Occult Blood Reflex 2+ A
(Negative)
Urine Nitrite (Reflex) Positive A
(Negative)
Urine Bilirubin 3+ A
(Negative)
Urine Urobilinogen 3+ A
(Neg - 1+)
Leukocyte Esterase Rfl Trace A
(Negative)
Urine Osmolality 298 L mOsm/kg
(300-900)
Urine Sodium 7 L mmol/L
(30-90)
Urine Albumin (Reflex) 1+ A
(Neg - Trace)
11/17/24 14:15
11/17/24 14:15
Vital Signs
Initial and Last Documented VS:
Initial Vital Signs
Temp Pulse Resp BP Pulse Ox
98.0 F 102 18 97/61 97
11/17/24 13:56 11/17/24 13:56 11/17/24 13:56 11/17/24 13:56 11/17/24 13:56
Last Documented Vital Signs
Temp Pulse Resp BP Pulse Ox
98.0 F 94 18 100/56 99
11/17/24 13:56 11/17/24 16:01 11/17/24 16:01 11/17/24 16:01 11/17/24 16:01
<Garrison Madden, DO - Last Filed: 11/17/24 19:15>
MDM/Problems Addressed
Differential Diagnosis Includes:
UTI, hyponatremia, obstructive jaundice
MDM/Problems Addressed:
74-year-old female with hyponatremia, weakness, jaundice, pancreatic carcinoma with hepatic metastasis.
Chronic conditions affecting care: Cancer (Pancreatic carcinoma)
Acute Exacerbation and/or Progression of Chronic Illness: Cancer (Pancreatic carcinoma)
<Garrison Madden, DO - Last Filed: 11/17/24 19:15>
*Radiology
Radiology exam reviewed: radiology read reviewed (Ultrasound abdomen:4.2 cm mass at body of pancreas consistent with known pancreatic carcinoma, hepatomegaly with hepatic metastasis, small volume ascites, biliary sludge and gallbladder)
*Pulse Oximetry
Patient hypoxic: no
*EKG
Interpreted by ED Provider?: Yes
EKG Intrepretation Date: 11/17/24
EKG Intrepretation Time: 14:18
Interpretation: abnormal
Comparison EKG: no changes
Heart Rate: 104
Rate: tachycardiac
Rhythm: sinus tachycardia
[place]: normal axis
Interval: normal interval
QRS Pattern: normal QRS
Ischemia: no ischemia
*Soil Tester Interpretation
Rate: tachycardiac
Interpretation: abnormal
Heart Rate: 105
Rhythm: sinus tachycardia
*Critical Care Note
Total Time (30-74mins, 75-104mins- exclusive of procedures): Not Applicable
Data Reviewed
Review of Other/Old Records Reveals: Labs (prior Na 137 o 09/24/24)
Source: records
<Garrison Madden DO - Last Filed: 11/17/24 19:15>
Patient Management
Social determinants of health affecting care: Living situation and Strong social support
Discussion with other providers: Hospitalist
Escalation/DeEscalation of care consider admission/obs:
admit indicated
ED Attending Note
<Mckinley Hopson Jr., PA-C - Last Filed: 11/17/24 14:02>
-
Portions of this chart may have been created with voice recognition software.� Occasional wrong word or��sound alike� substitutions may have occurred due to the inherent limitations of voice recognition software.
Discharge Plan
Departure
Patient Disposition: Admit
Date of Disposition: 11/17/24
Time of Disposition: 19:06
Admit to: Telemetry
Presentation/result/management discussed w/ accepting MD/DO: Hospitalist
Patient with high blood pressure during this ER visit?: No
Condition: Fair
Discharge Problem:
Jaundice, Pancreas carcinoma, Acute hyponatremia, Acute UTI, Weakness
Prescriptions:
No Action
lisinopril 5 MG tablet
5 mg PO DAILY
ascorbic acid (vitamin C) [Vitamin C] 500 MG tablet
500 mg PO TUSA
rosuvastatin 10 MG tablet
10 mg PO HS
cholecalciferol (vitamin D3) 1,000 UNITS tablet
1,000 units PO DAILY
One Daily Women 50 Plus 1 EACH tablet
1 ea PO QPM
fexofenadine 60 mg Tablet
60 mg PO DAILYPRN PRN (Reason: allergies)
loperamide 2 mg Capsule
2 mg PO DAILYPRN PRN (Reason: diarrhea)
polyethylene glycol 3350 [Miralax] 17 gram Powder In Packet
17 g PO DIRECTED PRN (Reason: constipation )
meclizine 25 mg Tablet
25 mg PO DAILYPRN PRN (Reason: vertigo)
triamcinolone acetonide [Nasacort] 55 mcg Aerosol,Racine
1 spray INTRANASAL DAILY
Rx Instructions:
administer into each nostril
calcium carbonate [Tums] 200 mg calcium (500 mg) Tablet,Chewable
200 mg PO DAILYPRN PRN (Reason: sour stomach)
dicyclomine 10 mg Capsule
10 mg PO DAILYPRN PRN (Reason: intestinal spasm)
Systane (PF) 0.4-0.3 % Dropperette
1 drp BOTH EYES TID
Biotene Dry Mouth Oral Rinse Mouthwash
15 ml MUCOUS MEMBRANE DAILYPRN PRN (Reason: dry mouth)
omeprazole 20 mg Capsule,Delayed Release(Dr/Ec)
20 mg PO DAILY
enoxaparin 60 mg/0.6 mL Syringe
60 mg SC Q12H Qty: 36 0RF
ciprofloxacin HCl 500 mg tablet
500 mg PO BID Qty: 14 0RF
Referrals:
Radu Marinelli DO [Family Provider] -
Interventions
Interventions:
*Risk Screen - Suicide Last Done: 11/17/24 17:40
*General Assessment Last Done: 11/17/24 13:56
*Neglect/Abuse Screening Last Done: 11/17/24 17:40
ED- Cardiac Assessment Last Done: 11/17/24 17:40
ED- Neurological Assessment Last Done: 11/17/24 17:40
ED- Pulmonary Assessment Last Done: 11/17/24 17:40
Discharge Date and Time
Print Language: CROATIAN
[2024-11-17 14:45] LABS: Hematocrit 35.4 % (37.0-47.0); Hemoglobin 12.3 g/dL (12.0-16.0); Mean Corp Hgb Conc. 34.7 g/dL (33.0-37.0); Mean Corpuscular Hgb 28.9 pg (27.0-31.0); Mean Corpuscular Volume 83.1 fL (81.0-99.0); Mean Platelet Volume 10.2 fL (7.4-10.4); Platelet Count 363 10^3/uL (130-400); Red Blood Cell Count 4.26 10^6/uL (4.20-5.40); Red Cell Dist. Width 21.1 % (11.5-14.5); White Blood Cell Count 17.3 10^3/uL (4.8-10.8)
[2024-11-17 15:14] LABS: ALT (SGPT) 43 U/L (0-35); AST (SGOT) 331 U/L (14-36); Albumin 2.7 g/dl (3.5-5.0); Blood Urea Nitrogen 10 mg/dl (7-17); Calcium 9.4 mg/dl (8.4-10.2); Carbon Dioxide 26 mmol/L (22-30); Chloride 91 mmol/L (98-107); Glucose 101 mg/dl (70-99); Lipase 154 U/L (23-300); Potassium 3.9 mmol/L (3.5-5.1); Sodium 126 mmol/L (135-145); Total Bilirubin 17.6 mg/dl (0.2-1.3); Total Protein 5.7 g/dl (6.3-8.2); eGFR > 60.00
[2024-11-17 15:48] LABS: Absolute Neutrophils -Man Diff 12.4 10^3/uL (1.4-6.5); Alkaline Phosphatase 1379 U/L (38-126); Anisocytosis 2+; Band Neutrophils 0 % (0-3); Eosinophils 5 % (0-6); Lymphocytes 12 % (20-51); Macrocytosis 2+; Monocytes 10 % (2-9); Normal RBC Morphology No; Platelets Checked Yes; Polychromasia 1+; Segmented Neutrophils 72 % (42-75); Stomatocytes 2+; Target Cells 1+; Total Cells Counted 100
[2024-11-17 16:01] VITALS: BP 100/56
[2024-11-17 17:36] LABS: Osmolality Urine 298 mOsm/kg (300-900)
[2024-11-17 17:45] LABS: Urine Albumin 1+ (Neg - Trace); Urine Bilirubin 3+ (Negative); Urine Character Slightly Cloudy (Clear); Urine Color Brown; Urine Glucose Negative (Negative); Urine Ketone Negative (Negative); Urine Leukocyte Trace (Negative); Urine Nitrite Positive (Negative); Urine Occult Blood 2+ (Negative); Urine Urobilinogen 3+ (Neg - 1+)
[2024-11-17 17:49] LABS: Urine Sodium 7 mmol/L (30-90)
[2024-11-17 17:58] LABS: Osmolality Serum 279 mOsm/kg (275-300)
[2024-11-17 19:17] LABS: Urine Squamous Cell >30 /LPF (Few)
[2024-11-17 19:18] LABS: Urine Bacteria Few (Negative); Urine Mucus Moderate; Urine White Cell 26-30 /HPF (0-5)
[2024-11-17] MEDS: LEVAQUIN 150 IV (19:29)
--- NOTE | 2024-11-17 19:38 | HPS.HSE ---
Family Physician
-
Family Physician: Radu Marinelli
Chief Complaint
-
Jaundice and weakness
History of Present Illness
This is a 74-year-old female with past medical history significant for migraine headaches, vertigo, hypertension, distal DVT, recently diagnosed with pancreatic mass with hepatic mets with a pancreatic mass with multiple hepatic mets s/p biopsy
showing pancreatic cancer for which she is being followed by palliative and oncology Who presents to the emergency department with worsening jaundice. Presenting to the emergency department with worsening jaundice, nausea and weakness.
Patient was diagnosed with a urinary tract infection about 2 weeks ago. She was treated with 1 week of ciprofloxacin. At the end of the treatment she started developing nausea. She then started noticing that her skin color was changing. She
developed scleral icterus. She also reports some shortness of breath.
She was seen by palliative today with concern for obstructive jaundice. She was then sent to the emergency department for evaluation.
Patient reports decreased p.o. intake due to nausea and low appetite. She denies fevers or chills. She does not report any dysuria. She does report some back discomfort.
In the emergency department she was afebrile, blood pressure was 100/56 with pulse of 94 satting 99% on room air. Chest xray was clear. AB U/S shows 4 cm pancreatic body mass, hepatomegally with multiple hepatic mets. Biliary sludge with GB
thickening. No ductal dilation. She has a new leukocytosis to 17, hyponatremia to 126 wit normal bun/cr. Tbili now markedly elevated to 17. AT and ALT are moderately increased.
Medical History
Past Medical History
Past Medical History: Reports Cancer (Pancreatic cancer. ), HTN and Hypercholesterolemia
Additional Past Medical History:
DVT on lovenox
Migraine headaches
Past Surgical History: Reports Orthopedic
Social History
Tobacco: Non-smoker
Alcohol: None
Drug: None
Personal:
Living: With Family
Employment: Retired
Family History
Family History: Not pertinent
Allergies / Home Medications
Allergies reflects when Allergies were last updated in [facility].
Home Medications with original date entered in [facility]
Allergy/Medication List:
Allergies
Allergy/AdvReac Type Severity Reaction Status Date / Time
acetaminophen [From Percocet] Allergy Severe Nausea / Verified 11/05/24 03:39
Vomiting
formaldehyde Allergy Severe skin Verified 11/05/24 03:39
problems
lactose Allergy Severe diarrhea Verified 11/05/24 03:39
latex [Latex] Allergy Severe Rash Verified 11/05/24 03:39
ondansetron [From Zofran] Allergy Severe headache Verified 11/05/24 03:39
oxycodone [From Percocet] Allergy Severe Nausea / Verified 11/05/24 03:39
Vomiting
povidone-iodine Allergy Severe Hives Verified 11/05/24 03:39
[From Betadine]
soap [From Betadine] Allergy Severe Hives Verified 11/05/24 03:39
Sulfa (Sulfonamide Allergy Severe Unknown Verified 11/05/24 03:39
Antibiotics)
iodine [Iodine] Allergy hives, Verified 11/05/24 03:39
nausea &
vomiting
metronidazole [From Flagyl] Allergy Nausea Verified 11/05/24 03:39
oxycodone HCl [From Percodan] Allergy Vomiting Verified 11/05/24 03:39
oxycodone terephthalate Allergy Vomiting Verified 11/05/24 03:39
[From Percodan]
Penicillins Allergy Rash Verified 11/05/24 03:39
propoxyphene HCl Allergy nausea & Verified 11/05/24 03:39
[From Darvon] vomiting
propoxyphene napsylate Allergy Unknown Verified 11/05/24 03:39
[From Darvocet-N 100]
tramadol Allergy Vomiting Verified 11/05/24 03:39
hay fever Allergy Severe Unknown Uncoded 11/05/24 03:39
lobster Allergy Severe GERD Uncoded 11/05/24 03:39
Home Medications
lisinopril 5 mg tablet 5 mg PO DAILY Blood pressure 11/23/18
ascorbic acid (vitamin C) 500 mg tablet (Vitamin C) 500 mg PO TUSA supplement 04/28/21
cholecalciferol (vitamin D3) 25 mcg (1,000 unit) tablet 1,000 units PO DAILY Supplement 04/28/21
multivitamin with [id number] 400 mcg-120 mg tablet (One Daily Women 50 Plus) 1 ea PO QPM Supplement 04/28/21
rosuvastatin 10 mg tablet 10 mg PO HS High Cholesterol 04/28/21
calcium carbonate (Tums) 200 mg PO DAILYPRN PRN sour stomach 07/23/23
dicyclomine 10 mg capsule 10 mg PO DAILYPRN PRN intestinal spasm 07/23/23
fexofenadine 60 mg tablet 60 mg PO DAILYPRN PRN allergies 07/23/23
loperamide 2 mg capsule 2 mg PO DAILYPRN PRN diarrhea 07/23/23
meclizine 25 mg tablet 25 mg PO DAILYPRN PRN vertigo 07/23/23
peg 400-propylene glycol (PF) 0.4 %-0.3 % eye drops in a dropperette (Systane (PF)) 1 drp BOTH EYES TID dry eye 07/23/23
polyethylene glycol 3350 17 gram oral powder packet (Miralax) 17 g PO DIRECTED PRN constipation 07/23/23
saliva substitute combo no.9 (Biotene Dry Mouth Oral Rinse mouthwash) 15 ml mucous membrane DAILYPRN PRN dry mouth 07/23/23
triamcinolone acetonide 55 mcg nasal spray aerosol (Nasacort) 1 spray intranasal DAILY Allergies 07/23/23
omeprazole 20 mg capsule,delayed release 20 mg PO DAILY Gastrointestinal Issue 09/20/24
enoxaparin 60 mg/0.6 mL subcutaneous syringe 60 mg (0.6 mL) SC Q12H #36 mL 09/24/24
ciprofloxacin HCl 500 mg tablet 500 mg PO BID #14 tabs 11/05/24
Review of Systems
-
History Source: Patient
Constitutional: Reports Fatigue
EENT: Reports No Symptoms
Respiratory: Reports Trouble Breathing
Cardiac: Reports No Symptoms
Abdomen/GI: Reports Abdominal Pain, Nausea and Anorexia
: Reports No Symptoms
Musculoskeletal: Reports No Symptoms
Skin: Reports No Symptoms
Neurological: Reports No Symptoms
Endocrine: Reports No Symptoms
Hematologic/Lymphatic: Reports No Symptoms
Psych: Reports No Symptoms
Physical Exam
Vital Signs
Vital Signs
Temp Pulse Resp BP Pulse Ox
98.0 F 94 18 100/56 99
11/17/24 13:56 11/17/24 16:01 11/17/24 16:01 11/17/24 16:01 11/17/24 16:01
Physical Exam
General: Comfortable and Conversant
HEENT: NormoCephalic, Atraumatic, Good Dentition, PERRLA and Other (scleral icterus)
Respiratory: Clear
Cardiac: S1/S2 and Regular Rhythm
Breast: Deferred by me
GI: Soft, Non Tender, Non Distended and Normal Bowel Sounds
Rectal: Brown
Genito-urinary: Deferred by me
Musculoskeletal: No Clubbing, No Cyanosis, Edema, Left Lower Extremity (trace) and Edema, Right Lower Extremity (trace)
Skin: Warm
Neuro: AO x 3 and Nonfocal/grossly intact
Hematologic/Lymphatic: No Lymphadenopathy
Psych: Calm
Laboratory Results
-
11/17/24 14:15
11/17/24 14:15
Laboratory Results
Total Bilirubin 17.6 mg/dl (0.2-1.3) H 11/17/24 14:15
AST 331 U/L (14-36) H 11/17/24 14:15
ALT 43 U/L (0-35) H 11/17/24 14:15
Alkaline Phosphatase 1379 U/L (38-126) H 11/17/24 14:15
Lipase 154 U/L (23-300) 11/17/24 14:15
Data Reviewed
-
Ultrasound: Image Personally Visualized and interpreted
Lab Data: Labs Reviewed by me
Old Records: Reviewed
Impression/Plan
-
IMPRESSION:
This is a 74 y.o female with recent history of pancreatic cancer diagnosis with multiple hepatic mets presenting to ED with jaundice elevated tbili to 17.6 and failure to thrive at home. Afebrile here but with leukocytosis. No obvious biliary
obstruction on the ultrasound. GB sludge without obvious acute cholecystitis. UTI and hyponatremia on labs. Chest xray is clear.
PLAN:
1. Jaundice - Suspect intrahepatic obstructive jaundice. Unlikely acute liver injury. Associated nausea and failure to thrive.
- admit to med/surg
- trend lfts
- MR abdomen in am
- antiemetics for now
- given no obvious cholangitis/choledocholithiasis will continue diet as tolerated
- GI consultation.
2. Hyponatremia - Urine Osm is high but low sodium. History suggestive of markedly reduced intake. There is some ascites and patient could be developing portal hypertension
- given poor po intake, would rather give IV normal saline for now until urine sodium increased
- IV NS bolus 1 L then at 100 ml/hr
- eval LE edema and U Na in am, if no improvement in serum sodium and U Na high, consider renal consult.
3. UTI - Mildly symptomatic with leukocytosis
- urine cultures pending
- will continue levaquin for now
4. DVT
- continue lovenox 60 q 12
Code status - Full code
[2024-11-17 19:49] VITALS: BP 108/70
[2024-11-17] MEDS: NSS 1000 IV ×2 (21:23→23:58)
[2024-11-17] MEDS: TYLENOL 650 MG PO (22:31)
[2024-11-17 22:48] VITALS: BP 120/89
[2024-11-17] MEDS: LOVENOX SC (23:44)
[2024-11-17] MEDS: CRESTOR 10 MG PO (23:53)
[2024-11-17 23:59] VITALS: BP 121/73
[2024-11-18 07:02] LABS: INR 1.94; PT 22.3 Sec (11.4-14.6)
[2024-11-18 07:04] LABS: Hemoglobin 10.5 g/dL (12.0-16.0); Mean Corp Hgb Conc. 33.9 g/dL (33.0-37.0); Mean Corpuscular Hgb 29.2 pg (27.0-31.0); Mean Corpuscular Volume 86.4 fL (81.0-99.0); Mean Platelet Volume 10.3 fL (7.4-10.4); Platelet Count 329 10^3/uL (130-400); Red Blood Cell Count 3.59 10^6/uL (4.20-5.40); Red Cell Dist. Width 20.6 % (11.5-14.5); White Blood Cell Count 16.6 10^3/uL (4.8-10.8)
[2024-11-18 07:13] LABS: ALT (SGPT) 37 U/L (0-35); AST (SGOT) 284 U/L (14-36); Albumin 2.2 g/dl (3.5-5.0); Blood Urea Nitrogen 13 mg/dl (7-17); Calcium 8.6 mg/dl (8.4-10.2); Carbon Dioxide 26 mmol/L (22-30); Chloride 96 mmol/L (98-107); Direct Bilirubin 14.8 mg/dl (0.0-0.4); Glucose 76 mg/dl (70-99); Potassium 3.7 mmol/L (3.5-5.1); Sodium 126 mmol/L (135-145); Total Bilirubin 16.5 mg/dl (0.2-1.3); Total Protein 5.1 g/dl (6.3-8.2); eGFR > 60.00
[2024-11-18 07:24] LABS: Alkaline Phosphatase 1953 U/L (38-126)
[2024-11-18 07:52] VITALS: BP 128/72
[2024-11-18 08:21] VITALS: BMI 25.4
--- NOTE | 2024-11-18 09:03 | W.PN.HOSP.TC ---
Addendum entered and electronically signed by Genaro Molina DO 11/18/24 10:00:
I spoke with hospice nurse who also spoke with the patient. Patient now requesting discharge home today on hospice.
Will cancel nephrology consult. Arrange for discharge today.
Original Note:
Today's Communication/Plan
-
Fluid restriction
Stop antibiotics
Nephrology consult
Hospice consult
Assessment / Plan
Assessment / Plan
Gen-AAOx3, NAD
HEENT-NC, AT, jaundiced
Neck-supple
CV-reg, no M, +S1/S2
Lungs-clear B/L
Abd-soft, very mild tenderness, mild distention
Ext-1+ bilateral ankle edema
Musculoskeletal-no cyanosis, clubbing
Skin-warm and dry
Neuro-grossly non-focal
Psych-calm, cooperative
Obstructive jaundice -due to metastatic pancreatic cancer. Long discussion with patient regarding goals of care and she has opted for hospice. Her goal is comfort. Hold off on further imaging. Hold off on GI consult. [place] text sent to
Nasrinin her oncologist regarding plans. She was on palliative care at home prior to admission. Discussed with case management.
No evidence of UTI. Stop antibiotics. She does have a prolapsed bladder which likely will cause abnormal urinalysis. She has no UTI symptoms. One of her concerns was low urine output prior to admission. She states her urine output is improved
in the hospital.
Hyponatremia -likely multifactorial etiology including low solute intake, ADH excess due to malignancy, etc. Sodium still 126 today. Fluid restriction. Nephrology consulted. Explained to patient that she may or may not feel better with
improvement in her sodium level.
DNR - confirmed with patient.
History of DVT - on Lovenox.
Dispo -hopefully can discharge in 24 hours if home hospice can be arranged.
Anticipated Discharge: Within 24 hours
Subjective/Interval History
-
Date of Service: November 18, 2024
Patient seen and examined. Feeling somewhat better compared to yesterday. No complaints.
Objective Data
-
Labs:
Laboratory Results
11/18/24
06:28
WBC 16.6 H
Hgb 10.5 L
Hct 31.0 L
Plt Count 329
PT 22.3 H
INR 1.94
Sodium 126 L
Potassium 3.7
Chloride 96 L
Carbon Dioxide 26
BUN 13
Creatinine 0.6
Glucose 76
Calcium 8.6
Total Bilirubin 16.5 H
AST 284 H
ALT 37 H
Alkaline Phosphatase 1953 H
Vital Signs:
Vital Signs
Temp Pulse Resp BP Pulse Ox
97.6 F 85 20 128/72 98
11/18/24 07:52 11/18/24 07:52 11/18/24 07:52 11/18/24 07:52 11/18/24 07:52
Review of Systems
-
History Source: Patient
All other systems: Reviewed and negative
--- NOTE | 2024-11-18 09:06 | CM ---
Addendum entered by Kelly Alfaro RN 11/18/24 10:19:
Plan for discharge today with [facility].
PLAN: Home hospice.
Original Note:
CM was updated that patient is interested in hospice. 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
--- NOTE | 2024-11-18 09:30 | HOSPNOTE ---
Addendum entered by Nessa Marks RN 11/18/24 10:23:
Patient will be going home today with hospice services. The patient will not be admitted for any further testing. Attending aware and will discharge. Once patient is home will admit onto hospice services with hospice. CM updated and floor RN
aware of plan. Admissions was called to disregard bed assignment. Spouse will be driving patient home.
Original Note:
Referral received will speak with spouse and patient. More information to follow.
--- NOTE | 2024-11-18 10:02 | W.DS.TRANS ---
DC Summary - [employer] Graph[employer]
-
Discharge Instructions:
Discharge Diagnosis/Procedures Metastatic pancreatic cancer
Diet Regular
Activity As tolerated
Driving Restrictions As prior to admission
Bathing Restrictions None
Instructions:
Stand-Alone Forms:
Changes to Home Medications: No
Discharge Medications:
DC Medications w/original date entered in [facility]
dicyclomine 10 mg capsule 10 mg PO DAILYPRN PRN intestinal spasm 07/23/23
fexofenadine 60 mg tablet 60 mg PO DAILYPRN PRN allergies 07/23/23
meclizine 25 mg tablet 25 mg PO DAILYPRN PRN vertigo 07/23/23
peg 400-propylene glycol (PF) 0.4 %-0.3 % eye drops in a dropperette (Systane (PF)) 1 drp BOTH EYES TIDPRN PRN dry eye 07/23/23
polyethylene glycol 3350 17 gram oral powder packet (Miralax) 17 g PO DAILYPRN PRN constipation 07/23/23
saliva substitute combo no.9 (Biotene Dry Mouth Oral Rinse mouthwash) 15 ml mucous membrane DAILYPRN PRN dry mouth 07/23/23
triamcinolone acetonide 55 mcg nasal spray aerosol (Nasacort) 1 spray intranasal DAILYPRN PRN allergies 07/23/23
acetaminophen 300 mg-codeine 15 mg tablet 1 tab PO Q6HPRN PRN severe pain 11/17/24
acetaminophen 500 mg tablet (Tylenol Extra Strength) 1,000 mg PO BID 11/17/24
fluoxetine 10 mg capsule 10 mg PO DAILY 11/17/24
lasmiditan 50 mg tablet (Reyvow) 50 mg PO DAILYPRN PRN migraine 11/17/24
Home Medication Changes
Pending Results: No
[2024-11-18] MEDS: LOVENOX 60 MG SC (11:09)
[2024-11-18 11:45] VITALS: BP 121/75
== END 2024-11-18 12:15 | disposition hospice, home (50) | DRG 445 ==
LOC: ED 20:32
PROVIDERS: Physician Assistant; ADMITTING PHYSICIAN Internal Medicine; ATTENDING PHYSICIAN Hospitalist; EMERGENCY PHYSICIAN Emergency Medicine; FAMILY PHYSICIAN Internal Medicine
DX: K83.1 Obstruction of bile duct (principal); C25.9 Malignant neoplasm of pancreas, unspecified; C78.7 Secondary malignant neoplasm of liver and intrahepatic bile duct; Q21.12 Patent foramen ovale; E87.1 Hypo-osmolality and hyponatremia; R18.8 Other ascites; N39.0 Urinary tract infection, site not specified; G43.909 Migraine, unspecified, not intractable, without status migrainosus; E78.00 Pure hypercholesterolemia, unspecified; R62.7 Adult failure to thrive; H91.90 Unspecified hearing loss, unspecified ear; R63.0 Anorexia; I10 Essential (primary) hypertension; Z66 Do not resuscitate; Z97.4 Presence of external hearing-aid; Z86.718 Personal history of other venous thrombosis and embolism; Z51.5 Encounter for palliative care; Z88.8 Allergy status to other drugs, medicaments and biological substances; Z91.041 Radiographic dye allergy status; Z91.040 Latex allergy status; Z91.011 Allergy to milk products; Z88.5 Allergy status to narcotic agent; Z88.0 Allergy status to penicillin; Z91.013 Allergy to seafood
CPT/HCPCS: 71046; 76700; 80053; 81003; 81015; 82248; 83690; 83930; 83935; 84300; 85025; 85027; 85610; 87086; 93005; 96365; 96366; 99285